=== PATIENT | female | born 1930 | race African-American/Black ===

== ENCOUNTER 2016-10-21 09:44 | Inpatient (IN) | payer MEDICARE, MEDICAID ==
[~2016-10-21] VITALS: Ht 162.6 cm; Wt 97.0 kg
[2016-10-21] VITALS (12 sets, daily range): BP systolic 136–176; BP diastolic 58–79; PULSE 72–88; RESP 12–30; TEMP 99.1–101.5; O2SAT 94–100
[~2016-10-21 09:44] MED LIST: 1-ME1LIQ PO; ALPR.25 PO; ARIC5TAB PO; ARIP1TAB46 PO; BUSP15TA PO; CLON.1 PO; CLOP75 PO; DOCU1CAP39 PO; DUONI INH; FURO1TAB93 PO; KCL10 PO; LEVA500T PO; LOSA25 PO; PRED50 PO; TRAM50 PO; TRAZ50TA4 PO; WARF6 PO
[2016-10-21] MEDS ORDERED: SODIUM CHLOR 0.9% 1000 ML INJ 1,000 ML IV SCH ×2 (09:55→12:39)
[2016-10-21] MEDS ORDERED: SODIUM CHLORIDE 0.9% FLUSH 5 ML FLUSH IV FLUSH PRN (10:00)
--- NOTE | 2016-10-21 10:02 | PD ---
HPI Chief Complaint: altered mental status Time Seen by Provider: 09:55 Travel History International Travel<30 days: No Contact w/Intl Traveler<30days: No Traveled to known affect area: No History of Present Illness HPI This is an 86-year-old female with a history of rheumatoid arthritis, hypertension, coronary artery disease, Parkinson's disease, dementia, who presents from home with altered mental status. The patient apparently was last seen normal last night before bed. When family members woke her up to give her a bath, she was severely lethargic and weak with altered mental status. The patient is unable to give history. She knows her name and where she is at. There is no other history at this time. PFSH Past Medical History Arthritis: Yes Asthma: No Autoimmune Disease: No Blood Disorders: No Anxiety: Yes Depression: Yes Heart Rhythm Problems: No Cancer: No Cardiovascular Problems: Yes High Cholesterol: No Chemotherapy: Yes Chest Pain: No Congestive Heart Failure: Yes COPD: No Cerebrovascular Accident: Yes Diabetes: Yes (BORDERLINE) Diminished Hearing: Yes (HEARING AIDS; [employer] [place]) Endocrine: No Gastrointestinal Disorders: No Genitourinary: Yes (history of uti) Hypertension: Yes Immune Disorder: No Musculoskeletal: Yes Neurologic: No Psychiatric: Yes Reproductive: No Respiratory: Yes Immunizations Current: Yes Myocardial Infarction: Yes Sleep Apnea: No Thyroid Disease: No PNEUMOCCOCAL Vaccine (Year): 3 Menopausal: Yes : 11 Para: 11 Past Surgical History Joint Replacement: Yes (bilateral knees) Pacemaker: No Other Surgery: Yes Social History Alcohol Use: No Tobacco Use: No Substance Use: No Allergies-Medications (Allergen,Severity, Reaction): Coded Allergies: No Known Allergies (Verified , 01/06/16) Reported Meds & Prescriptions Reported Meds & Active Scripts Active Reported Losartan (Losartan Potassium) 50 Mg Tab 50 Mg PO DAILY Amlodipine (Amlodipine Besylate) 10 Mg Tab 10 Mg PO DAILY Furosemide 40 Mg Tab 40 Mg PO DAILY Buspirone (Buspirone HCl) 15 Mg Tab 15 Mg PO TID Trazodone (Trazodone HCl) 50 Mg Tab 50 Mg PO HS Clonidine (Clonidine HCl) 0.1 Mg Tab 0.1 Mg PO BID Clopidogrel (Clopidogrel Bisulfate) 75 Mg Tab 75 Mg PO DAILY Ibuprofen 800 Mg Tab 800 Mg PO Q8H PRN Donepezil 5 Mg Tab 5 Mg PO HS Aripiprazole 10 Mg Tab 10 Mg PO DAILY Review of Systems ROS Limitations: Clinical Condition (unable to get review of systems.), Altered Mental Status Except as stated in HPI: all other systems reviewed are Neg Physical Exam Narrative GENERAL: Elderly weak ill appearing female in no acute respiratory distress. SKIN: Focused skin assessment warm/dry. HEAD: Atraumatic. Normocephalic. EYES: No scleral icterus. No injection or drainage. ENT: No nasal bleeding or discharge. Mucous membranes pink and moist. NECK: Trachea midline. Supple. CARDIOVASCULAR: Regular rate and rhythm, with a 2/6 systolic murmur heard at the right sternal border. Occasional PVC noted on monitor and on auscultation. RESPIRATORY: No accessory muscle use. Clear to auscultation however limited secondary to patient's respiratory effort.. Breath sounds equal bilaterally. GASTROINTESTINAL: Abdomen soft, non-tender, nondistended. MUSCULOSKELETAL: No obvious deformities. No clubbing. No cyanosis. Trace pretibial edema bilaterally. NEUROLOGICAL: Awake and confused. Questionable left facial droop. Motor equal but weak 4. Data Data Last Documented VS Vital Signs Date Time Temp Pulse Resp B/P Pulse Ox O2 Delivery O2 Flow Rate FiO2 10/21/16 10:04 79 12 94 Nasal Cannula 2 10/21/16 09:55 101.5 146/63 Orders Electrocardiogram (10/21/16 09:55) Complete Blood Count With Diff (10/21/16 09:55) Comprehensive Metabolic Panel (10/21/16 09:55) Creatine Kinase (Cpk) (10/21/16 09:55) Troponin I (10/21/16 09:55) Urinalysis - C+S If Indicated (10/21/16 09:55) Blood Culture (10/21/16 09:55) Chest, Single Ap (10/21/16 09:55) Ct Brain W/O Iv Contrast(Rout) (10/21/16 09:55) Blood Glucose (10/21/16 09:55) Ecg Monitoring (10/21/16 09:55) Iv Access Insert/Monitor (10/21/16 09:55) Oximetry (10/21/16 09:55) Sodium Chloride 0.9% Flush (Ns Flush) (10/21/16 10:00) Sodium Chlor 0.9% 1000 Ml Inj (Ns 1000 M (10/21/16 09:55) Prothrombin Time / Inr (Pt) (10/21/16 09:57) Act Partial Throm Time (Ptt) (10/21/16 09:57) Lactic Acid Sepsis Protocol (10/21/16 09:58) Urine Culture (10/21/16 10:30) Vancomycin Inj (Vancomycin Inj) (10/21/16 11:06) Piperacil-Tazo 4.5 Gm Premix (Zosyn 4.5 (10/21/16 11:06) Admit Order (Ed Use Only) (10/21/16 11:55) Labs Laboratory Tests Test 10/21/16 10/21/16 10/21/16 10:10 10:15 10:30 White Blood Count 10.1 TH/MM3 Red Blood Count 4.27 MIL/MM3 Hemoglobin 11.7 GM/DL Hematocrit 36.7 % Mean Corpuscular Volume 86.1 FL Mean Corpuscular Hemoglobin 27.5 PG Mean Corpuscular Hemoglobin 32.0 % Concent Red Cell Distribution Width 12.9 % Platelet Count 186 TH/MM3 Mean Platelet Volume 9.7 FL Neutrophils (%) (Auto) 82.1 % Lymphocytes (%) (Auto) 8.5 % Monocytes (%) (Auto) 9.0 % Eosinophils (%) (Auto) 0.1 % Basophils (%) (Auto) 0.3 % Neutrophils # (Auto) 8.2 TH/MM3 Lymphocytes # (Auto) 0.9 TH/MM3 Monocytes # (Auto) 0.9 TH/MM3 Eosinophils # (Auto) 0.0 TH/MM3 Basophils # (Auto) 0.0 TH/MM3 CBC Comment DIFF FINAL Differential Comment Prothrombin Time 11.1 SEC Prothromb Time International 1.0 RATIO Ratio Activated Partial 30.2 SEC Thromboplast Time Sodium Level 140 MEQ/L Potassium Level 5.0 MEQ/L Chloride Level 109 MEQ/L Carbon Dioxide Level 23.2 MEQ/L Anion Gap 8 MEQ/L Blood Urea Nitrogen 18 MG/DL Creatinine 1.28 MG/DL Estimat Glomerular Filtration 48 ML/MIN Rate Random Glucose 144 MG/DL Calcium Level 9.1 MG/DL Total Bilirubin 1.1 MG/DL Aspartate Amino Transf 29 U/L (AST/SGOT) Alanine Aminotransferase 15 U/L (ALT/SGPT) Alkaline Phosphatase 72 U/L Total Creatine Kinase 153 U/L Troponin I 0.85 NG/ML Total Protein 7.7 GM/DL Albumin 3.1 GM/DL Lactic Acid Level 2.1 mmol/L Urine Color YELLOW Urine Turbidity HAZY Urine pH 5.5 Urine Specific [place] 1.023 Urine Protein 100 mg/dL Urine Glucose (UA) NEG mg/dL Urine Ketones NEG mg/dL Urine Occult Blood SMALL Urine Nitrite NEG Urine Bilirubin NEG Urine Urobilinogen 2.0 MG/DL Urine Leukocyte Esterase LARGE Urine RBC 4 /hpf Urine WBC 11 /hpf Urine WBC Clumps RARE Urine Squamous Epithelial 2 /hpf Cells Urine Amorphous Sediment RARE Urine Bacteria MOD /hpf Urine Hyaline Casts 28 /lpf Urine Mucus FEW /lpf Microscopic Urinalysis Comment CATH-CULTURE IND MDM Medical Decision Making Medical Screen Exam Complete: Yes Emergency Medical Condition: Yes Differential Diagnosis Sepsis versus CVA versus metabolic arrangement Narrative Course 86-year-old female presents from home with altered mental status. The patient has a UTI. She does have a temperature of 101.6. She also has a infected tooth that she was scheduled to see the dentist for today. She was covered initially with Zosyn and vancomycin. There is a call out to the medical brine well operator as she is a full code. She has a temp of 101.5 with acute kidney injury and a lactate greater than 2.. She'll be continued on the antibiotics. She is also been started on normal saline at 100 cc per hour. Case was discussed with Dr. Sarah Jerez, who agrees to admit the patient to her service. Sepsis Criteria SIRS Criteria (2 or more): Temp > 100.9 or < 96.8 Sepsis Criteria (SIRS+source): Infect source susp/known Severe Sepsis (+one): Lactate >2, Acute Oliguria/Renal Failure Diagnosis Primary Impression: Sepsis Additional Impressions: Acute kidney injury Elevated troponin Rheumatoid factor positive Rheumatoid arthritis Coronary artery disease Admitting Information Admitting Physician Requests: Admit Moises Agudelo MD Oct 21, 2016 10:02
[2016-10-21] MEDS ORDERED: IBUP800T23 PO (10:12)
[2016-10-21] MEDS ORDERED: ARIP1TAB12 PO (10:12)
[2016-10-21] MEDS ORDERED: AMLO10TA2 PO (10:12)
[2016-10-21] MEDS ORDERED: CLON0.1T PO (10:12)
[2016-10-21] MEDS ORDERED: LOSA50TA PO (10:12)
[2016-10-21] MEDS ORDERED: CLOP75TA PO (10:12)
[2016-10-21] MEDS ORDERED: DONE5TAB7 PO (10:12)
[2016-10-21] MEDS ORDERED: FURO40TA PO (10:12)
[2016-10-21] MEDS ORDERED: TRAZ50TA12 PO (10:12)
[2016-10-21] MEDS ORDERED: BUSP15TA PO (10:12)
[2016-10-21 10:28] LABS: AUTOMATED NEUTROPHIL # 8.2 TH/MM3 (1.8-7.7); BASOPHIL % 0.3 % (0.0-2.0); EOSINOPHIL % 0.1 % (0.0-4.0); HEMATOCRIT 36.7 % (35.0-46.0); HEMO FLAGS DIFF FINAL; LYMPH % 8.5 % (9.0-44.0); LYMPHOCYTE # 0.9 TH/MM3 (1.0-4.8); MEAN CELL VOLUME 86.1 FL (80.0-100.0); MEAN CORPUSCULAR HEMOGLOBIN 27.5 PG (27.0-34.0); NEUT % 82.1 % (16.0-70.0); PLATELET COUNT 186 TH/MM3 (150-450); RED BLOOD COUNT 4.27 MIL/MM3 (4.00-5.30); RED CELL DISTRIBUTION WIDTH 12.9 % (11.6-17.2); WHITE BLOOD COUNT 10.1 TH/MM3 (4.0-11.0)
--- NOTE | 2016-10-21 10:39 | RADRPT ---
EXAM DATE/TIME: 10/21/2016 10:05 [facility] COMPARISON: CHEST SINGLE AP, January 06, 2016, 10:52. INDICATIONS : Weakness. MEDICAL HISTORY : Hypertension. SURGICAL HISTORY : None. ENCOUNTER: Initial ACUITY: 1 day PAIN SCORE: Non-responsive. LOCATION: Bilateral chest FINDINGS: The heart remains mildly prominent. The pulmonary vascular pattern is normal. The lungs are clear. Degenerative changes are noted involving the thoracic spine and bilateral shoulders. CONCLUSION: 1. No acute focal pulmonary infiltrate or pulmonary vascular congestion. 2. Mild cardiomegaly. 3. Degenerative changes involving the thoracic spine and bilateral shoulders. Chuck Vu MD on October 21, 2016 at 10:29 Board Certified Radiologist. This report was verified electronically.
[2016-10-21 10:44] LABS: APTT (PATIENT) 30.2 SEC (24.3-30.1); PROTHROMBIN TIME - PATIENT 11.1 SEC (9.8-11.6)
[2016-10-21 10:47] LABS: ALT (GPT) 15 U/L (10-53)
[2016-10-21 11:02] LABS: BACTERIA, URINE MOD /hpf; BLOOD, URINE SMALL (NEG); COMMENT (UR) CATH-CULTURE IND; CULTURE IF INDICATED CATH CULTURE IND; GLUCOSE,URINE NEG (NEG); HYALINE CAST, URINE 28 /lpf (RARE); KETONE, URINE NEG (NEG); MUCUS URINE FEW /lpf (OCC); NITRITE,URINE NEG (NEG); PH, URINE 5.5 (5.0-8.5); SQUAMOUS EPITHELIAL CELL URINE 2 /hpf (0-5); URINE COLOR YELLOW (YELLW/STRAW)
[2016-10-21] MEDS ORDERED: VANCOMYCIN INJ 1,000 MG in SODIUM CHLOR 0.9% 250 ML INJ 250 ML IV STA (11:06)
[2016-10-21] MEDS ORDERED: PIPERACIL-TAZO 4.5 GM PREMIX 100 ML IV STA (11:06)
[2016-10-21 11:09] LABS: ALKALINE PHOSPHATASE 72 U/L (45-117); ANION GAP 8 MEQ/L (5-15); AST (GOT) 29 U/L (15-37); BICARBONATE 23.2 MEQ/L (21.0-32.0); BLOOD UREA NITROGEN 18 MG/DL (7-18); CHLORIDE 109 MEQ/L (98-107); CREATINE KINASE 153 U/L (26-192); GLOMERULAR FILTRATION RATE 48 ML/MIN (>89); SODIUM (NA) 140 MEQ/L (136-145); TOTAL BILIRUBIN ADULT 1.1 MG/DL (0.2-1.0)
--- NOTE | 2016-10-21 11:31 | RADRPT ---
EXAM DATE/TIME: 10/21/2016 10:43 [facility] COMPARISON: CT BRAIN W/O CONTRAST, January 20, 2013, 12:20. INDICATIONS : Altered mental status, left side facial droop. RADIATION DOSE: 56.38 CTDIvol (mGy) MEDICAL HISTORY : Stroke. Cardiovascular disease Hypertension. SURGICAL HISTORY : None. ENCOUNTER: Initial ACUITY: 1 day PAIN SCALE: 0/10 LOCATION: cranial TECHNIQUE: Multiple contiguous axial images were obtained of the head. Using automated exposure control and adj ustment of the mA and/or kV according to patient size, radiation dose was kept as low as reasonably a chievable to obtain optimal diagnostic quality images. DICOM format image data is available electro nically for review and comparison. FINDINGS: Examination is limited by patient motion. CEREBRUM: Moderate diffuse cerebral atrophy and periventricular ischemic white matter location. The ventricles are normal for age. No evidence of midline shift, mass lesion, hemorrhage or acute infarction. No e xtra-axial fluid collections are seen. POSTERIOR FOSSA: The cerebellum and brainstem are intact. The 4th ventricle is midline. The cerebellopontine angle i s unremarkable. EXTRACRANIAL: The visualized portion of the orbits is intact. SKULL: The calvaria is intact. No evidence of skull fracture. CONCLUSION: 1. Senescent changes. 2. No acute intracranial normality. Tushar Vee MD on October 21, 2016 at 11:26 Board Certified Radiologist. This report was verified electronically.
[2016-10-21 12:23] LABS: LACTIC ACID GHOST NOT REPORTABLE
[2016-10-21] MEDS ORDERED: MAGNESIUM HYDROXIDE SUSP 30 ML CUP PO PRN (12:45)
[2016-10-21] MEDS ORDERED: LACTULOSE SYRUP 20 GM/30 ML CUP PO PRN (12:45)
[2016-10-21] MEDS ORDERED: BISACODYL 10 MG SUPP RECTAL PRN (12:45)
[2016-10-21] MEDS ORDERED: ONDANSETRON HCL 4 MG/2 ML VIAL IV PRN (12:45)
[2016-10-21] MEDS ORDERED: CHLORHEXIDINE GLUCONATE 2 % 1 PACK (2 CLOTHS) TOP PRN (12:45)
[2016-10-21] MEDS ORDERED: ACETAMINOPHEN 325 MG TAB PO PRN (12:45)
[2016-10-21] MEDS ORDERED: RESP: ALBUTEROL 2.5 MG/IPRATROPIUM 0.5 MG NEB (PRN) INH (12:45)
[2016-10-21] MEDS ORDERED: MISCELLANEOUS NURSING INFORMATION XX SCH ×2 (12:45→13:00)
[2016-10-21] MEDS ORDERED: SENNOSIDES 8.6 MG TAB PO PRN (12:45)
[2016-10-21] MEDS ORDERED: Vancomycin Consult Pharmacy 1 EA OTHER SCH (13:00)
[2016-10-21] MEDS ORDERED: GLUCAGON 1 MG/ML VIAL OTHER PRN (13:00)
[2016-10-21] MEDS ORDERED: DEXTROSE 50% IN WATER 50 ML VIAL(D50) IV PRN (13:00)
[2016-10-21] MEDS: HEPARIN SODIUM - SQ 10,000 UNITS/ML VIAL SQ SCH (13:11)
--- NOTE | 2016-10-21 13:40 | HHI.HP ---
HPI Service Critical Care Medicine Primary Care Physician Jose Cardoza MD Admission Diagnosis SEPSIS, acute kidney injury, elevated troponin Diagnosis: Travel History International Travel<30 Days: No Contact w/Intl Traveler <30 Da: No Traveled to Known Affected Are: No History of Present Illness This is an 86-year-old female with a history of rheumatoid arthritis, hypertension, coronary artery disease, Parkinson's disease, dementia, that presented to the ED with altered mental status. Per family report, the patient apparently was last seen normal last night before bed. When family members woke her up to give her a bath, she was severely lethargic and weak with altered mental status. The patient is a poor historian. Alert to name, and location. Per family report the patient is noted to have an infected tooth and was scheduled to have tooth extraction today .In the ED the patient's temperature was noted to be 101.5, laboratory and imaging studies were performed and the patient was noted to have probable urosepsis, empiric antibiotics were initiated. CT brain was within normal limits. Critical Care medicine was contacted for management of patient. History PFSH Past Medical History Arthritis: Yes Asthma: No Autoimmune Disease: No Blood Disorders: No Anxiety: Yes Depression: Yes Heart Rhythm Problems: No Cancer: No Cardiovascular Problems: Yes High Cholesterol: No Chemotherapy: Yes Chest Pain: No Congestive Heart Failure: Yes COPD: No Cerebrovascular Accident: Yes Diabetes: Yes (BORDERLINE) Diminished Hearing: Yes (HEARING AIDS; [place]) Endocrine: No Gastrointestinal Disorders: No Genitourinary: Yes (history of uti) Hypertension: Yes Immune Disorder: No Musculoskeletal: Yes Neurologic: No Psychiatric: Yes Reproductive: No Respiratory: Yes Immunizations Current: Yes Myocardial Infarction: Yes Sleep Apnea: No Thyroid Disease: No PNEUMOCCOCAL Vaccine (Year): 3 Menopausal: Yes : 11 Para: 11 Past Surgical History Joint Replacement: Yes (bilateral knees) Pacemaker: No Other Surgery: Yes Social History Alcohol Use: No Tobacco Use: No Substance Use: No Allergies-Medications Allergies-Medications (Allergen,Severity, Reaction): Coded Allergies: No Known Allergies (Verified , 01/06/16) Reported Meds & Prescriptions Reported Meds & Active Scripts Active Reported Losartan (Losartan Potassium) 50 Mg Tab 50 Mg PO DAILY Amlodipine (Amlodipine Besylate) 10 Mg Tab 10 Mg PO DAILY Furosemide 40 Mg Tab 40 Mg PO DAILY Buspirone (Buspirone HCl) 15 Mg Tab 15 Mg PO TID Trazodone (Trazodone HCl) 50 Mg Tab 50 Mg PO HS Clonidine (Clonidine HCl) 0.1 Mg Tab 0.1 Mg PO BID Clopidogrel (Clopidogrel Bisulfate) 75 Mg Tab 75 Mg PO DAILY Ibuprofen 800 Mg Tab 800 Mg PO Q8H PRN Donepezil 5 Mg Tab 5 Mg PO HS Aripiprazole 10 Mg Tab 10 Mg PO DAILY ROS Review of Systems ROS Limitations: Clinical Condition (unable to get review of systems.), Altered Mental Status Except as stated in HPI: all other systems reviewed are Neg Past Family Social History Allergies: Coded Allergies: *MDRO Multi-Drug Resistant Organism (Verified Adverse Reaction, Unknown, MRSA, 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 SKIN: Warm and dry. HEAD: Atraumatic. Normocephalic. EYES: Pupils equal and round. No scleral icterus. No injection or drainage. ENT: No nasal bleeding or discharge. Mucous membranes pink and moist. Noted carious teeth NECK: Trachea midline. No JVD. CARDIOVASCULAR: Normal rate, regular rhythm. Systolic ejection murmur left sternal border RESPIRATORY: No accessory muscle use. Clear to auscultation. Breath sounds equal bilaterally. GASTROINTESTINAL: Abdomen soft, non-tender, nondistended. No guarding. MUSCULOSKELETAL: Extremities without clubbing, cyanosis, or edema. No obvious deformities. Well-healed surgical scars bilateral knees, 1+ pedal edema NEUROLOGICAL: Awake and alert. RASS 0. No gross focal/sensory deficits. Follows commands in all 4 extremities. Laboratory Laboratory Tests Test 10/21/16 10/21/16 10/21/16 10:10 10:15 10:30 White Blood Count 10.1 Red Blood Count 4.27 Hemoglobin 11.7 Hematocrit 36.7 Mean Corpuscular Volume 86.1 Mean Corpuscular Hemoglobin 27.5 Mean Corpuscular Hemoglobin 32.0 Concent Red Cell Distribution Width 12.9 Platelet Count 186 Mean Platelet Volume 9.7 Neutrophils (%) (Auto) 82.1 Lymphocytes (%) (Auto) 8.5 Monocytes (%) (Auto) 9.0 Eosinophils (%) (Auto) 0.1 Basophils (%) (Auto) 0.3 Neutrophils # (Auto) 8.2 Lymphocytes # (Auto) 0.9 Monocytes # (Auto) 0.9 Eosinophils # (Auto) 0.0 Basophils # (Auto) 0.0 CBC Comment DIFF FINAL Differential Comment Prothrombin Time 11.1 Prothromb Time International 1.0 Ratio Activated Partial 30.2 Thromboplast Time Sodium Level 140 Potassium Level 5.0 Chloride Level 109 Carbon Dioxide Level 23.2 Anion Gap 8 Blood Urea Nitrogen 18 Creatinine 1.28 Estimat Glomerular Filtration 48 Rate Random Glucose 144 Calcium Level 9.1 Total Bilirubin 1.1 Aspartate Amino Transf 29 (AST/SGOT) Alanine Aminotransferase 15 (ALT/SGPT) Alkaline Phosphatase 72 Total Creatine Kinase 153 Troponin I 0.85 Total Protein 7.7 Albumin 3.1 Lactic Acid Level 2.1 Urine Color YELLOW Urine Turbidity HAZY Urine pH 5.5 Urine Specific [place] 1.023 Urine Protein 100 Urine Glucose (UA) NEG Urine Ketones NEG Urine Occult Blood SMALL Urine Nitrite NEG Urine Bilirubin NEG Urine Urobilinogen 2.0 Urine Leukocyte Esterase LARGE Urine RBC 4 Urine WBC 11 Urine WBC Clumps RARE Urine Squamous Epithelial 2 Cells Urine Amorphous Sediment RARE Urine Bacteria MOD Urine Hyaline Casts 28 Urine Mucus FEW Microscopic Urinalysis Comment CATH-CULTURE IND Date/Time Procedure Status Source Growth 10/21/16 10:30 Urine Culture Received Urine Catheterized Urine Pending 10/21/16 10:15 Aerobic Blood Culture Received Blood Peripheral Pending 10/21/16 10:15 Anaerobic Blood Culture Received Blood Peripheral Pending Result Diagram: 10/21/16 1010 10/21/16 1010 Imaging Last Impressions Head CT 10/21/16954 Signed Impressions: Service Date/Time: Friday, October 21, 2016 10:43 - CONCLUSION: 1. Senescent changes. 2. No acute intracranial normality. Tushar Vee MD Chest X-Ray 10/21/16954 Signed Impressions: Service Date/Time: Friday, October 21, 2016 10:05 - CONCLUSION: 1. No acute focal pulmonary infiltrate or pulmonary vascular congestion. 2. Mild cardiomegaly. 3. Degenerative changes involving the thoracic spine and bilateral shoulders. Chuck Vu MD Septic Shock Reassessment Heart: Regular rate and rhythm Lungs: Clear Skin: Warm, Dry Peripheral Pulses: Bounding Right Radial Bounding Left Radial Assessment and Plan Assessment and Plan Assessment 1. Urosepsis 2. Possible dental abscess 3. Metabolic encephalopathy secondary to sepsis 4. Parkinson's 5. Dementia 6. Hypertension 7. Coronary artery disease 8. SHAMA secondary to sepsis Plan by systems: Neurologic: -Neurochecks per ICU protocol -Continue Apiprazole, Donepizil, -Hold trazodone and Buspar at this time -Maintain sleep hygiene-stimulation during the day, minimal stimulation, encourage sleep at night Respiratory: -Maintain O2 sat greater than 92%, currently nasal cannula O2 at 2 L continue to wean -Bronchodilators -Maintain head of bed 30 Cardiovascular: -BP ranging 180/91 , 201/91-continue antihypertensive home medications to include losartan, amlodipine, and clonidine -Continue Plavix -Patient's home dose of Lasix 40 mg daily will be held today, creatinine 1.28, will monitor and reinstitute -Echocardiogram 12/28/14-ejection fraction 5560 percent, no RWMA, moderate aortic stenosis, trace aortic regurgitation, mild tricuspid regurgitation, grade 1 diastolic dysfunction -Obtain recent echo Renal: -Hold patient's home med NSAID, avoid nephrotoxins -Insert Verdugo catheter -- Strict I/Os FEN/GI: -Normal saline 84 cc/hour -Nothing by mouth -Obtain formal swallow study, then advance diet -Bowel regimen Heme/ID: -Monitor CBC, WBC count 10.1 -Continue empiric antibiotics-Zosyn, and vancomycin -Obtain blood urine and urine [id number] results -Legionella, pneumococcal urine [id number] results -Influenza A and B [id number] results Endocrine: Glucose monitoring per ICU protocol -Low dose insulin regimen -- SSI Prophylaxis: GI Prophylaxis Protonix DVT Prophylaxis -- SCDs Heparin twice a day Lines: Peripheral IVs. Central line if indicated Dispo: Level 3 Code Status Full Discussed Condition With ED RN at bedside, and Sarah Santoro MD Oct 21, 2016 13:40
[2016-10-21] MEDS: RESP: ALBUTEROL 2.5 MG/IPRATROPIUM 0.5 MG NEB (SCH) INH ×2 (15:42→20:17)
--- NOTE | 2016-10-21 15:59 | ECHRPT ---
Indication: Hypertensive heart disease without heart failure CONCLUSIONS Normal left ventricular size. Mild concentric left ventricular hypertrophy. The left ventricular systolic function is normal with an estimated ejection fraction in the range of 55-60%. No regional wall motion abnormalities are present. The left atrial size is mildly dilated. Mitral annular calcification is present. Moderate mitral valve regurgitation. Severe aortic valve stenosis. Aortic valve mean gradient is 44 mmHg. There is moderate tricuspid regurgitation. There is estimated severe pulmonary hypertension present ( 73 mmHg). A trivial pericardial effusion is noted. No hemodynamically significant echocardiographic features were observed (no pre-tamponade physiology). BP: / HR: Rhythm: Other MEASUREMENTS (Male / Female) Normal Values Technical Quality:Good 2D ECHO LV Diastolic Diameter PLAX 4.5 cm 4.2 - 5.9 / 3.9 - 5.3 cm LV Systolic Diameter PLAX 3.2 cm IVS Diastolic Thickness 1.1 cm 0.6 - 1.0 / 0.6 - 0.9 cm LVPW Diastolic Thickness 0.8 cm 0.6 - 1.0 / 0.6 - 0.9 cm LV Relative Wall Thickness 0.4 RV Internal Dim ED PLAX 2.3 cm LA Systolic Diameter LX 3.8 cm 3.0 - 4.0 / 2.7 - 3.8 cm DOPPLER AV Peak Velocity 468.0 cm/s AV Peak Gradient 87.6 mmHg AV Mean Gradient 44.0 mmHg AV Velocity Time Integral 104.0 cm LVOT Peak Velocity 134.5 cm/s LVOT Peak Gradient 7.2 mmHg LVOT Velocity Time Integral 30.3 cm MV Peak Velocity 207.0 cm/s MV Peak Gradient 17.1 mmHg MV Mean Velocity 102.0 cm/s MV Mean Gradient 5.0 mmHg MV Area PHT 3.4 cm MR Peak Velocity 725.0 cm/s MR Peak Gradient 210.3 mmHg Mitral E Point Velocity 115.0 cm/s Mitral A Point Velocity 149.0 cm/s Mitral E to A Ratio 0.8 TR Peak Velocity 412.0 cm/s TR Peak Gradient 67.9 mmHg FINDINGS LEFT VENTRICLE Normal left ventricular size. Mild concentric left ventricular hypertrophy. The left ventricular systolic function is normal with an estimated ejection fraction in the range of 55-60%. No regional wall motion abnormalities are present. RIGHT VENTRICLE Normal right ventricular size and systolic function. LEFT ATRIUM The left atrial size is mildly dilated. RIGHT ATRIUM The right atrial size is normal. ATRIAL SEPTUM Normal atrial septal thickness without atrial level shunting by limited color doppler interrogation. AORTA The aortic root and proximal ascending aorta are normal in size on limited imaging. MITRAL VALVE Mitral annular calcification is present. Moderate mitral valve regurgitation. AORTIC VALVE Moderate aortic valve stenosis. Aortic valve mean gradient is 44 mmHg. TRICUSPID VALVE There is moderate tricuspid regurgitation. There is estimated severe pulmonary hypertension present ( 73 mmHg). PULMONARY VALVE The pulmonary valve is not well visualized. VESSELS The inferior vena cava is normal in size. PERICARDIUM A trivial pericardial effusion is noted. No hemodynamically significant echocardiographic features were observed (no pre-tamponade physiology). Eric Ramsey MD (Electronically Signed) Final Date:21 October 2016 15:57
[2016-10-21] MEDS: INSULIN ASPART SUPPLEMENTAL SCALE SQ SCH ×2 (16:00→20:52)
[2016-10-21] MEDS ORDERED: hydrALAZINE HCL 20 MG/ML VIAL ONE (16:04)
[2016-10-21] MEDS ORDERED: hydrALAZINE HCL 20 MG/ML VIAL IV PUSH PRN (17:00)
[2016-10-21] MEDS: PIPERACIL-TAZO 4.5 GM PREMIX 100 ML IV SCH ×2 (17:19→23:11)
[2016-10-21] MEDS: DEXT 5%-NACL 0.9% 1000 ML INJ 1,000 ML IV SCH (17:22)
[2016-10-21 19:15] LABS: LACTIC ACID GHOST NOT REPORTABLE
[2016-10-21] MEDS: DONEPEZIL HCL 5 MG TAB PO SCH (20:52)
[2016-10-21] MEDS: DOCUSATE SODIUM 50 MG/SENNA 8.6 MG TAB PO SCH (20:52)
[2016-10-21] MEDS: cloNIDine HCL 0.1 MG TAB PO SCH (20:52)
[2016-10-21] MEDS ORDERED: traZODone HCL 50 MG TAB PO SCH (21:00)
[2016-10-22] VITALS (16 sets, daily range): BP systolic 129–177; BP diastolic 55–90; PULSE 58–78; RESP 14–28; TEMP 98–99.9; O2SAT 94–100
[2016-10-22] MEDS: HEPARIN SODIUM - SQ 10,000 UNITS/ML VIAL SQ SCH ×2 (00:19→13:25)
[2016-10-22] MEDS: CHLORHEXIDINE GLUCONATE 2 % 1 PACK (2 CLOTHS) TOP SCH (03:15)
[2016-10-22] MEDS: RESP: ALBUTEROL 2.5 MG/IPRATROPIUM 0.5 MG NEB (SCH) INH ×4 (03:36→19:58)
[2016-10-22] MEDS: PIPERACIL-TAZO 4.5 GM PREMIX 100 ML IV SCH ×4 (04:53→22:47)
[2016-10-22] MEDS: VANCOMYCIN INJ 1,250 MG in SODIUM CHLOR 0.9% 250 ML INJ 250 ML IV SCH (05:32)
[2016-10-22] MEDS: DEXT 5%-NACL 0.9% 1000 ML INJ 1,000 ML IV SCH (05:32)
[2016-10-22] MEDS ORDERED: VANCOMYCIN INJ 1,500 MG in SODIUM CHLORID 0.9% 500 ML INJ 500 ML IV SCH (06:00)
[2016-10-22] MEDS: INSULIN ASPART SUPPLEMENTAL SCALE SQ SCH ×4 (06:05→20:17)
[2016-10-22] MEDS: CLOPIDOGREL 75 MG TAB PO SCH (08:06)
[2016-10-22] MEDS: DOCUSATE SODIUM 50 MG/SENNA 8.6 MG TAB PO SCH ×2 (08:06→20:17)
[2016-10-22] MEDS: ARIPiprazole 10 MG TAB PO SCH (08:06)
[2016-10-22] MEDS: cloNIDine HCL 0.1 MG TAB PO SCH ×2 (08:06→20:17)
[2016-10-22] MEDS: PANTOPRAZOLE SODIUM 40 MG VIAL IV SCH (08:06)
[2016-10-22] MEDS: LOSARTAN 50 MG TAB PO SCH (08:06)
--- NOTE | 2016-10-22 08:12 | EKG ---
Date Performed: 10/21/2016 Time Performed: 10:03:00 PTAGE: 86 years EKG: Sinus rhythm NONSPECIFIC T-WAVE ABNORMALITY BORDERLINE ECG INTERPRETATION BASED ON A DEFAULT AGE OF 40 YEARS PREVIOUS TRACING : 01/06/2016 11.01 DOCTOR: Eric Ramsey Interpretating Date/Time 10/22/2016 08:05:52
[2016-10-22] MEDS: FUROSEMIDE 40 MG TAB PO SCH (10:07)
[2016-10-22] MEDS: SODIUM CHLOR 0.9% 1000 ML INJ 1,000 ML IV SCH (10:07)
--- NOTE | 2016-10-22 10:21 | HHI.CCPN ---
Subjective Remarks/Hospital Course This is an 86-year-old female with a history of rheumatoid arthritis, hypertension, coronary artery disease, Parkinson's disease, dementia, that presented to the ED with altered mental status. Per family report, the patient apparently was last seen normal last night before bed. When family members woke her up to give her a bath, she was severely lethargic and weak with altered mental status. The patient is a poor historian. Alert to name, and location. Per family report the patient is noted to have an infected tooth and was scheduled to have tooth extraction today .In the ED the patient's temperature was noted to be 101.5, laboratory and imaging studies were performed and the patient was noted to have probable urosepsis, empiric antibiotics were initiated. CT brain was within normal limits. Critical Care medicine was contacted for management of patient. Subjective: 10/22: Tmax 99.9. No acute issues overnight. Swallow study performed, mechanical soft diet initiated this a.m.. Patient's home medications, diuretics resumed. Morning labs pending. Patient awake and responsive, per daughter, normal activity. Objective Vital Signs Date Time Temp Pulse Resp B/P Pulse Ox O2 Delivery O2 Flow Rate FiO2 10/22/16 09: 99 Nasal Cannula 2.00 10/22/16 09:00 60 28 131/56 10/22/16 08:00 98.0 Intake and Output 10/21/16 10/21/16 10/22/16 08:00 16:00 00:00 Intake Total 762 ml Output Total 450 ml Balance 312 ml Result Diagram: 10/21/16 1010 10/21/16 1010 Other Results Microbiology Date/Time Procedure Status Source Growth 10/21/16 10:30 Legionella Antigen - Final Complete Urine Catheterized Urine PRESUMPTIVE NEGATIVE FOR LEGIONELLA P... 10/21/16 10:30 Streptococcus pneumoniae Antigen (M - Final Complete Urine Catheterized Urine PRESUMPTIVE NEGATIVE FOR STREPTOCOCCU... 10/21/16 13:45 Influenza Types A,B Antigen (SABINO) - Final Complete Nasal Washing NEGATIVE FOR FLU A AND B ANTIGEN.... Imaging Last Impressions Head CT 10/21/16 0963 Signed Impressions: Service Date/Time: Friday, October 21, 2016 10:43 - CONCLUSION: 1. Senescent changes. 2. No acute intracranial normality. Tushar Vee MD Chest X-Ray 10/21/16 0955 Signed Impressions: Service Date/Time: Friday, October 21, 2016 10:05 - CONCLUSION: 1. No acute focal pulmonary infiltrate or pulmonary vascular congestion. 2. Mild cardiomegaly. 3. Degenerative changes involving the thoracic spine and bilateral shoulders. Chuck Vu MD Objective Remarks GENERAL: Elderly obese female, alert and responsive SKIN: Warm and dry. HEAD: Atraumatic. Normocephalic. EYES: Pupils equal and round. No scleral icterus. No injection or drainage. ENT: No nasal bleeding or discharge. Mucous membranes pink and moist. NECK: Trachea midline. No JVD. CARDIOVASCULAR: Normal rate, regular rhythm. Systolic ejection murmur left sternal border RESPIRATORY: No accessory muscle use. Clear to auscultation. Breath sounds equal bilaterally. GASTROINTESTINAL: Abdomen soft, non-tender, nondistended. No guarding. MUSCULOSKELETAL: Extremities without clubbing, cyanosis, or edema. No obvious deformities. Well-healed surgical scars bilateral knees, 1+ pedal edema NEUROLOGICAL: Awake and alert. RASS 0. No gross focal/sensory deficits. Follows commands in all 4 extremities. Urinary Catheter: Yes Verdugo insert reason: Measure Accurate Output Date of Insertion: Oct 21, 2016 Vascular Central Line Catheter: No A/P Assessment and Plan Assessment 1. Urosepsis 2. Possible dental abscess 3. Metabolic encephalopathy secondary to sepsis 4. Parkinson's 5. Dementia 6. Hypertension 7. Coronary artery disease 8. SHAMA secondary to sepsis Plan by systems: Neurologic: -Neurochecks per ICU protocol -Continue Apiprazole, Donepizil, -Hold trazodone and Buspar at this time -Maintain sleep hygiene-stimulation during the day, minimal stimulation, encourage sleep at night Respiratory: -Maintain O2 sat greater than 92%, currently nasal cannula O2 at 2 L continue to wean -Bronchodilators -Maintain head of bed 30 -10/21 Severe Pulmonary hypertension per echo Cardiovascular: -BP ranging 180/91 , 201/91-continue antihypertensive home medications to include losartan, amlodipine, and clonidine -Continue Plavix -Patient's home dose of Lasix 40 mg daily will be held today, creatinine 1.28, will monitor and reinstitute -Echocardiogram 12/28/14-ejection fraction 5560 percent, no RWMA, moderate aortic stenosis, trace aortic regurgitation, mild tricuspid regurgitation, grade 1 diastolic dysfunction -10/21 Echo-EF 5560 %. No RWMA. Severe pulmonary hypertension 73 mmHG, moderate TR, moderate MR, moderate aortic stenosis, AV gradient of 44 mmHg Renal: -Hold patient's home med NSAID, avoid nephrotoxins -Resume patient's home medications furosemide 40 mg q daily -Insert Verdugo catheter -- Strict I/Os FEN/GI: -Continue Normal saline 42 cc/hour -Mechanical soft diet -Bowel regimen Heme/ID: -Monitor CBC, -Continue empiric antibiotics-Zosyn, and vancomycin (day 2) -Obtain blood urine and urine [id number] results -10/21 Legionella, pneumococcal urine antigen-negative -10/21 Influenza A and B antigens-negative Endocrine: Glucose monitoring per ICU protocol -Low dose insulin regimen -- SSI Prophylaxis: GI Prophylaxis Protonix DVT Prophylaxis -- SCDs Heparin twice a day Lines: Peripheral IVs. Dispo: Discussed with KELP GATHERER at bedside. Plan transfer to [facility] in a.m. Level 2 Physician Sarah Tam MD Oct 22, 2016 10:21
[2016-10-22 11:45] LABS: MAGNESIUM 2.3 MG/DL (1.5-2.5); POTASSIUM 3.7 MEQ/L (3.5-5.1)
[2016-10-22] MEDS: DONEPEZIL HCL 5 MG TAB PO SCH (20:17)
[2016-10-23] VITALS (12 sets, daily range): BP systolic 106–146; BP diastolic 50–63; PULSE 56–85; RESP 12–24; TEMP 97.9–99.1; O2SAT 95–100
[2016-10-23] MEDS: HEPARIN SODIUM - SQ 10,000 UNITS/ML VIAL SQ SCH ×2 (00:35→11:58)
[2016-10-23] MEDS: RESP: ALBUTEROL 2.5 MG/IPRATROPIUM 0.5 MG NEB (SCH) INH ×4 (03:13→21:33)
[2016-10-23] MEDS: CHLORHEXIDINE GLUCONATE 2 % 1 PACK (2 CLOTHS) TOP SCH (04:00)
[2016-10-23] MEDS: PIPERACIL-TAZO 4.5 GM PREMIX 100 ML IV SCH ×4 (04:30→22:09)
[2016-10-23] MEDS: INSULIN ASPART SUPPLEMENTAL SCALE SQ SCH ×4 (05:57→21:00)
[2016-10-23] MEDS: VANCOMYCIN INJ 1,250 MG in SODIUM CHLOR 0.9% 250 ML INJ 250 ML IV SCH (05:57)
[2016-10-23 06:11] LABS: HEMATOCRIT 32.1 % (35.0-46.0); MEAN CELL VOLUME 85.2 FL (80.0-100.0); MEAN CORPUSCULAR HEMOGLOBIN 27.7 PG (27.0-34.0); MEAN CORPUSCULAR HGB CONC 32.6 % (32.0-36.0); PLATELET COUNT 173 TH/MM3 (150-450); RED BLOOD COUNT 3.77 MIL/MM3 (4.00-5.30); RED CELL DISTRIBUTION WIDTH 12.9 % (11.6-17.2); REVIEW FLAG FINAL; WHITE BLOOD COUNT 7.8 TH/MM3 (4.0-11.0)
[2016-10-23 06:34] LABS: BICARBONATE 25.4 MEQ/L (21.0-32.0); MAGNESIUM 2.1 MG/DL (1.5-2.5)
[2016-10-23] MEDS: CLOPIDOGREL 75 MG TAB PO SCH (08:15)
[2016-10-23] MEDS: PANTOPRAZOLE SODIUM 40 MG VIAL IV SCH (08:15)
[2016-10-23] MEDS: cloNIDine HCL 0.1 MG TAB PO SCH ×2 (08:15→21:47)
[2016-10-23] MEDS: FUROSEMIDE 40 MG TAB PO SCH (08:15)
[2016-10-23] MEDS: DOCUSATE SODIUM 50 MG/SENNA 8.6 MG TAB PO SCH ×2 (08:15→21:47)
[2016-10-23] MEDS: LOSARTAN 50 MG TAB PO SCH (08:15)
[2016-10-23] MEDS: ARIPiprazole 10 MG TAB PO SCH (08:15)
[2016-10-23] MEDS: SODIUM CHLOR 0.9% 1000 ML INJ 1,000 ML IV SCH (08:16)
--- NOTE | 2016-10-23 10:31 | PD.TRANSFR ---
Transfer Summary Admission Date Oct 21, 2016 at 11:57 Admitting Diagnosis SEPSIS, acute kidney injury, elevated troponin Diagnoses: Transfer Summary/Subjective This is an 86-year-old female with a history of rheumatoid arthritis, hypertension, coronary artery disease, Parkinson's disease, dementia, that presented to the ED with altered mental status. Per family report, the patient apparently was last seen normal last night before bed. When family members woke her up to give her a bath, she was severely lethargic and weak with altered mental status. The patient is a poor historian. Alert to name, and location. Per family report the patient is noted to have an infected tooth and was scheduled to have tooth extraction today .In the ED the patient's temperature was noted to be 101.5, laboratory and imaging studies were performed and the patient was noted to have probable urosepsis, empiric antibiotics were initiated. CT brain was within normal limits. Critical Care medicine was contacted for management of patient. Subjective: 10/22: Tmax 99.9. No acute issues overnight. Swallow study performed, mechanical soft diet initiated this a.m.. Patient's home medications, diuretics resumed. Morning labs pending. Patient awake and responsive, per daughter, normal behavior. 10/23: No acute issues overnight. Gram-negative rods noted with urinary culture. Patient continues on Zosyn. Tolerating a diet, physical therapy has been instituted. Objective Vital Signs Date Time Temp Pulse Resp B/P Pulse Ox O2 Delivery O2 Flow Rate FiO2 10/23/16 09:23 99 10/23/16 06:00 85 10/23/16 04:00 98.0 15 137/61 10/23/16 04:00 Nasal Cannula 2.00 Intake and Output 10/22/16 10/22/16 10/23/16 08:00 16:00 00:00 Intake Total 512 ml 1261 ml 658 ml Output Total 175 ml 450 ml 525 ml Balance 337 ml 811 ml 133 ml Result Diagram: 10/23/16 0553 10/23/16 0553 Other Results Microbiology Date/Time Procedure Status Source Growth 10/21/16 10:30 Legionella Antigen - Final Complete Urine Catheterized Urine PRESUMPTIVE NEGATIVE FOR LEGIONELLA P... 10/21/16 10:30 Streptococcus pneumoniae Antigen (M - Final Complete Urine Catheterized Urine PRESUMPTIVE NEGATIVE FOR STREPTOCOCCU... 10/21/16 13:45 Influenza Types A,B Antigen (SABINO) - Final Complete Nasal Washing NEGATIVE FOR FLU A AND B ANTIGEN.... Imaging Last Impressions Head CT 10/21/16954 Signed Impressions: Service Date/Time: Friday, October 21, 2016 10:43 - CONCLUSION: 1. Senescent changes. 2. No acute intracranial normality. Tushar Vee MD Chest X-Ray 10/21/16954 Signed Impressions: Service Date/Time: Friday, October 21, 2016 10:05 - CONCLUSION: 1. No acute focal pulmonary infiltrate or pulmonary vascular congestion. 2. Mild cardiomegaly. 3. Degenerative changes involving the thoracic spine and bilateral shoulders. Chuck Vu MD Objective Remarks GENERAL: Elderly obese female, alert and responsive SKIN: Warm and dry. HEAD: Atraumatic. Normocephalic. EYES: Pupils equal and round. No scleral icterus. No injection or drainage. ENT: No nasal bleeding or discharge. Mucous membranes pink and moist. NECK: Trachea midline. No JVD. CARDIOVASCULAR: Normal rate, regular rhythm. Systolic ejection murmur left sternal border RESPIRATORY: No accessory muscle use. Clear to auscultation. Breath sounds equal bilaterally. GASTROINTESTINAL: Abdomen soft, non-tender, nondistended. No guarding. MUSCULOSKELETAL: Extremities without clubbing, cyanosis, or edema. No obvious deformities. Well-healed surgical scars bilateral knees, 1+ pedal edema NEUROLOGICAL: Awake and alert. RASS 0. No gross focal/sensory deficits. Follows commands in all 4 extremities. Urinary Catheter: Yes Verdugo insert reason: Measure Accurate Output Date of Insertion: Oct 21, 2016 A/P Assessment and Plan Assessment 1. Urosepsis 2. Possible dental abscess 3. Metabolic encephalopathy secondary to sepsis 4. Parkinson's 5. Dementia 6. Hypertension 7. Coronary artery disease 8. SHAMA secondary to sepsis Plan by systems: Neurologic: -Neurochecks per ICU protocol -Continue Apiprazole, Donepizil, -Continue trazodone and Buspar at this time -Maintain sleep hygiene-stimulation during the day, minimal stimulation, encourage sleep at night Respiratory: -Maintain O2 sat greater than 92%, currently nasal cannula O2 at 2 L continue to wean -Bronchodilators -Maintain head of bed 30 -10/21 Severe Pulmonary hypertension per echo Cardiovascular: -BP ranging 180/91 , 201/91-continue antihypertensive home medications to include losartan, amlodipine, and clonidine -Continue Plavix -Patient's home dose of Lasix 40 mg daily will be held today, creatinine 1.28, will monitor and reinstitute -Echocardiogram 12/28/14-ejection fraction 5560 percent, no RWMA, moderate aortic stenosis, trace aortic regurgitation, mild tricuspid regurgitation, grade 1 diastolic dysfunction -10/21 Echo-EF 5560 %. No RWMA. Severe pulmonary hypertension 73 mmHG, moderate TR, moderate MR, moderate aortic stenosis, AV gradient of 44 mmHg Renal: -Hold patient's home med NSAID, avoid nephrotoxins -Resume patient's home medications furosemide 40 mg q daily -Insert Verdugo catheter -- Strict I/Os FEN/GI: -Discontinue Normal saline 42 cc/hour -Mechanical soft diet -Bowel regimen Heme/ID: -Monitor CBC, -Continue empiric antibiotics-Zosyn(day 3), and vancomycin (day 2) discontinued - blood cultures- pending - urine [id number] rods -10/21 Legionella, pneumococcal urine antigen-negative -10/21 Influenza A and B antigens-negative Endocrine: Glucose monitoring per ICU protocol -Low dose insulin regimen -- SSI Prophylaxis: GI Prophylaxis Protonix DVT Prophylaxis -- SCDs Heparin twice a day Lines: Peripheral IVs. Dispo: Discussed with PATIENT ACCOUNTING REPRESENTATIVE at bedside. Plan transfer to [facility] in a.m. Level 2 Physician Sarah Tam MD Oct 23, 2016 10:31
[2016-10-23] MEDS: DONEPEZIL HCL 5 MG TAB PO SCH (21:47)
[2016-10-24] VITALS (9 sets, daily range): BP systolic 141–172; BP diastolic 64–79; PULSE 55–70; RESP 20–24; TEMP 97.6–98.4; O2SAT 92–100
[2016-10-24] MEDS: HEPARIN SODIUM - SQ 10,000 UNITS/ML VIAL SQ SCH ×2 (00:41→13:15)
[2016-10-24] MEDS: CHLORHEXIDINE GLUCONATE 2 % 1 PACK (2 CLOTHS) TOP SCH (04:00)
[2016-10-24] MEDS: RESP: ALBUTEROL 2.5 MG/IPRATROPIUM 0.5 MG NEB (SCH) INH ×4 (04:00→21:59)
[2016-10-24] MEDS: PIPERACIL-TAZO 4.5 GM PREMIX 100 ML IV SCH (04:55)
[2016-10-24] MEDS ORDERED: PHARMACY ORDERED LAB ONE (05:45)
[2016-10-24] MEDS: INSULIN ASPART SUPPLEMENTAL SCALE SQ SCH ×4 (06:41→21:00)
[2016-10-24] MEDS: FUROSEMIDE 40 MG TAB PO SCH (10:06)
[2016-10-24] MEDS: PANTOPRAZOLE SODIUM 40 MG VIAL IV SCH (10:06)
[2016-10-24] MEDS: DOCUSATE SODIUM 50 MG/SENNA 8.6 MG TAB PO SCH ×2 (10:06→21:00)
[2016-10-24] MEDS: CLOPIDOGREL 75 MG TAB PO SCH (10:07)
[2016-10-24] MEDS: LOSARTAN 50 MG TAB PO SCH (10:07)
[2016-10-24] MEDS: cloNIDine HCL 0.1 MG TAB PO SCH ×2 (10:07→21:51)
[2016-10-24] MEDS: ARIPiprazole 10 MG TAB PO SCH (10:07)
--- NOTE | 2016-10-24 10:36 | HHI.PR ---
Subjective Remarks Follow up urosepsis, encephalopathy. Patient denies complaints at this time. Denies pain. Denies dyspnea. Objective Vitals Vital Signs Date Time Temp Pulse Resp B/P Pulse Ox O2 Delivery O2 Flow Rate FiO2 10/24/16 09:21 92 Nasal Cannula 3.00 10/24/16 08:00 98.2 62 24 147/64 97 10/24/16 08:00 Nasal Cannula 3.00 10/24/16 04:00 97.6 65 20 141/65 99 10/24/16 00:00 98.3 55 20 142/64 100 10/23/16 21:34 99 Nasal Cannula 2.00 10/23/16 16:41 97 2.00 10/23/16 16:00 97.9 68 24 146/63 95 10/23/16 16:00 97 Room Air 10/23/16 14:00 99.1 65 18 137/63 95 10/23/16 12:00 98.3 63 24 125/58 100 10/23/16 12:00 64 10/23/16 12:00 100 Room Air I/O 10/23/16 10/23/16 10/23/16 10/24/16 10/24/16 10/24/16 07:00 15:00 23:00 07:00 15:00 23:00 Intake Total 402 ml 240 ml 360 ml 360 ml Output Total 150 ml 900 ml 150 ml 250 ml Balance 252 ml -660 ml 210 ml 110 ml Intake Oral 240 ml 360 ml 360 ml IV Total 402 ml Output Urine Total 150 ml 900 ml 150 ml 250 ml # Bowel Movements 0 Result Diagram: 10/23/16 0553 10/23/1653 Imaging Last Impressions Head CT 10/21/16954 Signed Impressions: Service Date/Time: Friday, October 21, 2016 10:43 - CONCLUSION: 1. Senescent changes. 2. No acute intracranial normality. Tushar Vee MD Chest X-Ray 10/21/16954 Signed Impressions: Service Date/Time: Friday, October 21, 2016 10:05 - CONCLUSION: 1. No acute focal pulmonary infiltrate or pulmonary vascular congestion. 2. Mild cardiomegaly. 3. Degenerative changes involving the thoracic spine and bilateral shoulders. Chuck Vu MD Objective Remarks General: Obese, elderly female in no acute distress. Heart: Regular rate and rhythm. No murmur. Lungs: Clear to auscultation bilaterally. No wheezes, rales, or rhonchi. Breathing is nonlabored. Abdomen: Soft, nontender, nondistended. Extremities: Trace to 1+ bilateral lower extremity edema. SCDs. Psych: Alert, somewhat confused. Procedures None Urinary Catheter: Yes Assessment to: Remove Date of Insertion: Oct 21, 2016 Vascular Central Line Catheter: No A/P Problem List: (1) Sepsis ICD Code: A41.9 Status: Resolved (2) UTI (urinary tract infection) ICD Code: N39.0 Status: Acute (3) Acute kidney injury ICD Code: N17.9 Status: Acute (4) Encephalopathy ICD Code: G93.40 Status: Acute (5) Hypertension ICD Code: I10 Status: Chronic (6) Coronary artery disease ICD Code: I25.10 Status: Chronic Assessment and Plan 1. Sepsis secondary to UTI: Continue antibiotics. Urine culture growing Klebsiella. Change from Zosyn to Rocephin. 2. Possible dental abscess: Continue antibiotics. Follow-up with dentist as outpatient. 3. Metabolic encephalopathy: Secondary to sepsis. Improving. 4. Dementia: Continue home medications. 5. Hypertension: Continue losartan, amlodipine, clonidine. 6. Coronary artery disease: Continue Plavix. 7. GI prophylaxis: Protonix. 8. DVT prophylaxis: Heparin, SCDs. Thierry Ny MD Oct 24, 2016 10:36
[2016-10-24 11:21] LABS: AUTOMATED NEUTROPHIL # 3.6 TH/MM3 (1.8-7.7); BASOPHIL % 0.6 % (0.0-2.0); EOSINOPHIL # 0.2 TH/MM3 (0-0.4); EOSINOPHIL % 3.7 % (0.0-4.0); HEMATOCRIT 33.2 % (35.0-46.0); HEMO FLAGS DIFF FINAL; LYMPHOCYTE # 1.4 TH/MM3 (1.0-4.8); MEAN CELL VOLUME 85.3 FL (80.0-100.0); MEAN CORPUSCULAR HEMOGLOBIN 27.1 PG (27.0-34.0); MEAN CORPUSCULAR HGB CONC 31.7 % (32.0-36.0); MONO % 12.1 % (0.0-8.0); NEUT % 59.6 % (16.0-70.0); PLATELET COUNT 192 TH/MM3 (150-450); RED BLOOD COUNT 3.89 MIL/MM3 (4.00-5.30); RED CELL DISTRIBUTION WIDTH 12.7 % (11.6-17.2)
[2016-10-24 11:37] LABS: BICARBONATE 28.7 MEQ/L (21.0-32.0); POTASSIUM 3.8 MEQ/L (3.5-5.1)
[2016-10-24] MEDS: cefTRIAXone INJ 1,000 MG in SODIUM CHLORIDE 0.9% INJ 100 ML IV SCH (13:10)
[2016-10-24] MEDS: DONEPEZIL HCL 5 MG TAB PO SCH (21:51)
[2016-10-25] VITALS (8 sets, daily range): BP systolic 130–167; BP diastolic 61–77; PULSE 58–73; RESP 18–22; TEMP 98–98.8; O2SAT 96–99
[2016-10-25] MEDS: HEPARIN SODIUM - SQ 10,000 UNITS/ML VIAL SQ SCH ×2 (01:14→11:36)
[2016-10-25] MEDS: CHLORHEXIDINE GLUCONATE 2 % 1 PACK (2 CLOTHS) TOP SCH (04:00)
[2016-10-25] MEDS: RESP: ALBUTEROL 2.5 MG/IPRATROPIUM 0.5 MG NEB (SCH) INH ×2 (04:11→10:07)
[2016-10-25] MEDS: INSULIN ASPART SUPPLEMENTAL SCALE SQ SCH ×4 (05:49→20:55)
[2016-10-25] MEDS: DOCUSATE SODIUM 50 MG/SENNA 8.6 MG TAB PO SCH ×2 (09:00→20:52)
[2016-10-25] MEDS: ARIPiprazole 10 MG TAB PO SCH (09:54)
[2016-10-25] MEDS: CLOPIDOGREL 75 MG TAB PO SCH (09:54)
[2016-10-25] MEDS: cloNIDine HCL 0.1 MG TAB PO SCH ×2 (09:54→20:52)
[2016-10-25] MEDS: LOSARTAN 50 MG TAB PO SCH (09:55)
[2016-10-25] MEDS: FUROSEMIDE 40 MG TAB PO SCH (09:55)
[2016-10-25] MEDS: PANTOPRAZOLE SODIUM 40 MG VIAL IV SCH (09:55)
[2016-10-25 10:55] LABS: AUTOMATED NEUTROPHIL # 3.2 TH/MM3 (1.8-7.7); BASOPHIL % 0.6 % (0.0-2.0); EOSINOPHIL # 0.2 TH/MM3 (0-0.4); EOSINOPHIL % 2.4 % (0.0-4.0); HEMATOCRIT 31.9 % (35.0-46.0); HEMO FLAGS DIFF FINAL; LYMPH % 33.8 % (9.0-44.0); LYMPHOCYTE # 2.1 TH/MM3 (1.0-4.8); MEAN CORPUSCULAR HEMOGLOBIN 27.7 PG (27.0-34.0); MEAN CORPUSCULAR HGB CONC 33.3 % (32.0-36.0); MONO % 12.4 % (0.0-8.0); NEUT % 50.8 % (16.0-70.0); PLATELET COUNT 189 TH/MM3 (150-450); RED BLOOD COUNT 3.84 MIL/MM3 (4.00-5.30); RED CELL DISTRIBUTION WIDTH 12.8 % (11.6-17.2); WHITE BLOOD COUNT 6.3 TH/MM3 (4.0-11.0)
[2016-10-25 11:25] LABS: BICARBONATE 29.7 MEQ/L (21.0-32.0); POTASSIUM 4.2 MEQ/L (3.5-5.1)
--- NOTE | 2016-10-25 11:34 | HHI.PR ---
Subjective Remarks Follow-up urosepsis, encephalopathy. Patient states that she feels okay today. Denies pain, dyspnea, nausea, vomiting. Objective Vitals Vital Signs Date Time Temp Pulse Resp B/P Pulse Ox O2 Delivery O2 Flow Rate FiO2 10/25/16 10:08 96 21 10/25/16 08:00 98.8 72 22 130/61 98 10/25/16 08:00 59 10/25/16 04:00 98.0 73 20 142/63 98 10/25/16 00:00 98.6 69 20 162/66 98 10/24/16 22:00 100 Nasal Cannula 3.00 10/24/16 21:57 Nasal Cannula 2.00 10/24/16 20:00 62 10/24/16 20:00 97.6 63 20 149/79 100 10/24/16 18:59 148/65 10/24/16 16:00 97.9 70 24 172/72 97 10/24/16 16:00 Nasal Cannula 2.50 10/24/16 13:16 Nasal Cannula 2.50 10/24/16 12:00 98.4 61 24 142/64 97 I/O 10/24/16 10/24/16 10/24/16 10/25/16 10/25/16 10/25/16 07:00 15:00 23:00 07:00 15:00 23:00 Intake Total 360 ml 460 ml 240 ml 120 ml Output Total 250 ml 800 ml Balance 110 ml -340 ml 240 ml 120 ml Intake Oral 360 ml 360 ml 240 ml 120 ml IV Total 100 ml Output Urine Total 250 ml 800 ml # Voids 2 3 # Bowel Movements 0 Result Diagram: 10/25/16 1037 10/25/16 1037 Imaging Last Impressions Head CT 10/21/16954 Signed Impressions: Service Date/Time: Friday, October 21, 2016 10:43 - CONCLUSION: 1. Senescent changes. 2. No acute intracranial normality. Tushar Vee MD Chest X-Ray 10/21/16954 Signed Impressions: Service Date/Time: Friday, October 21, 2016 10:05 - CONCLUSION: 1. No acute focal pulmonary infiltrate or pulmonary vascular congestion. 2. Mild cardiomegaly. 3. Degenerative changes involving the thoracic spine and bilateral shoulders. Chuck Vu MD Objective Remarks General: Obese, elderly female in no acute distress. Heart: Regular rate and rhythm. No murmur. Lungs: Clear to auscultation bilaterally. No wheezes, rales, or rhonchi. Breathing is nonlabored. Abdomen: Soft, nontender, nondistended. Extremities: Trace to 1+ bilateral lower extremity edema. SCDs. Psych: Alert, somewhat confused. Procedures None Urinary Catheter: No Vascular Central Line Catheter: No A/P Problem List: (1) Sepsis ICD Code: A41.9 Status: Resolved (2) UTI (urinary tract infection) ICD Code: N39.0 Status: Acute (3) Acute kidney injury ICD Code: N17.9 Status: Acute (4) Encephalopathy ICD Code: G93.40 Status: Acute (5) Hypertension ICD Code: I10 Status: Chronic (6) Coronary artery disease ICD Code: I25.10 Status: Chronic Assessment and Plan 1. Sepsis secondary to UTI: Continue antibiotics. Urine culture growing Klebsiella. Changed from Zosyn to Rocephin. 2. Possible dental abscess: Continue antibiotics. Follow-up with dentist as outpatient. 3. Metabolic encephalopathy: Secondary to sepsis. Improving. 4. Dementia: Continue home medications. 5. Hypertension: Continue losartan, amlodipine, clonidine. 6. Coronary artery disease: Continue Plavix. 7. GI prophylaxis: Protonix. 8. DVT prophylaxis: Heparin, SCDs. Discharge Planning Patient will need SNF at discharge. Possible discharge next 1-2 days pending continued clinical improvement. Thierry Ny MD Oct 25, 2016 11:34
[2016-10-25] MEDS: cefTRIAXone INJ 1,000 MG in SODIUM CHLORIDE 0.9% INJ 100 ML IV SCH (11:36)
[2016-10-25] MEDS: DONEPEZIL HCL 5 MG TAB PO SCH (20:52)
[2016-10-26] VITALS: BP 152/67; PULSE 56; RESP 18; TEMP 98.7; O2SAT 97
[2016-10-26] MEDS: HEPARIN SODIUM - SQ 10,000 UNITS/ML VIAL SQ SCH ×2 (01:00→12:43)
[2016-10-26 04:00] VITALS: BP 134/63; PULSE 55; RESP 18; TEMP 97.8; O2SAT 98
[2016-10-26] MEDS: CHLORHEXIDINE GLUCONATE 2 % 1 PACK (2 CLOTHS) TOP SCH (04:00)
[2016-10-26 05:55] LABS: BASOPHIL % 0.5 % (0.0-2.0); EOSINOPHIL # 0.2 TH/MM3 (0-0.4); EOSINOPHIL % 3.9 % (0.0-4.0); HEMATOCRIT 34.2 % (35.0-46.0); HEMO FLAGS DIFF FINAL; LYMPH % 27.8 % (9.0-44.0); LYMPHOCYTE # 1.5 TH/MM3 (1.0-4.8); MEAN CELL VOLUME 85.3 FL (80.0-100.0); MEAN CORPUSCULAR HEMOGLOBIN 27.5 PG (27.0-34.0); MEAN CORPUSCULAR HGB CONC 32.2 % (32.0-36.0); MONO % 13.9 % (0.0-8.0); NEUT % 53.9 % (16.0-70.0); PLATELET COUNT 202 TH/MM3 (150-450); RED BLOOD COUNT 4.01 MIL/MM3 (4.00-5.30); RED CELL DISTRIBUTION WIDTH 12.5 % (11.6-17.2); WHITE BLOOD COUNT 5.5 TH/MM3 (4.0-11.0)
[2016-10-26 06:14] LABS: BICARBONATE 29.7 MEQ/L (21.0-32.0); POTASSIUM 3.9 MEQ/L (3.5-5.1)
[2016-10-26] MEDS: INSULIN ASPART SUPPLEMENTAL SCALE SQ SCH ×2 (06:18→11:00)
[2016-10-26 08:00] VITALS: BP 166/74; PULSE 57; RESP 20; TEMP 97.4; O2SAT 98
[2016-10-26] MEDS: cloNIDine HCL 0.1 MG TAB PO SCH (09:35)
[2016-10-26] MEDS: ARIPiprazole 10 MG TAB PO SCH (09:35)
[2016-10-26] MEDS: CLOPIDOGREL 75 MG TAB PO SCH (09:35)
[2016-10-26] MEDS: LOSARTAN 50 MG TAB PO SCH (09:36)
[2016-10-26] MEDS: FUROSEMIDE 40 MG TAB PO SCH (09:36)
[2016-10-26] MEDS: DOCUSATE SODIUM 50 MG/SENNA 8.6 MG TAB PO SCH (09:36)
[2016-10-26] MEDS: PANTOPRAZOLE SODIUM 40 MG VIAL IV SCH (09:36)
[2016-10-26 12:00] VITALS: BP 153/67; PULSE 55; RESP 18; TEMP 97.8; O2SAT 100
[2016-10-26] MEDS: cefTRIAXone INJ 1,000 MG in SODIUM CHLORIDE 0.9% INJ 100 ML IV SCH (12:44)
[2016-10-26] MEDS ORDERED: CEFU1TAB20 PO (13:30)
--- NOTE | 2016-10-26 13:30 | HHI.DS ---
Discharge Summary Admission Date Oct 21, 2016 at 11:57 Discharge Date: Oct 26, 2016 Admitting Diagnosis SEPSIS, acute kidney injury, elevated troponin (1) Sepsis ICD Code: A41.9 (2) UTI (urinary tract infection) ICD Code: N39.0 (3) Acute kidney injury ICD Code: N17.9 (4) Encephalopathy ICD Code: G93.40 (5) Hypertension ICD Code: I10 (6) Coronary artery disease ICD Code: I25.10 Procedures None Brief History - From Admission History of present illness from the admitting physician This is an 86-year-old female with a history of rheumatoid arthritis, hypertension, coronary artery disease, Parkinson's disease, dementia, that presented to the ED with altered mental status. Per family report, the patient apparently was last seen normal last night before bed. When family members woke her up to give her a bath, she was severely lethargic and weak with altered mental status. The patient is a poor historian. Alert to name, and location. Per family report the patient is noted to have an infected tooth and was scheduled to have tooth extraction today .In the ED the patient's temperature was noted to be 101.5, laboratory and imaging studies were performed and the patient was noted to have probable urosepsis, empiric antibiotics were initiated. CT brain was within normal limits. Critical Care medicine was contacted for management of patient. CBC/BMP: 10/26/16 0508 10/26/16 0505 Significant Findings Laboratory Tests Test 10/24/16 10/25/16 10/26/16 10:52 10:37 05:08 Red Blood Count 3.89 MIL/MM3 3.84 MIL/MM3 (4.00-5.30) (4.00-5.30) Hemoglobin 10.5 GM/DL 10.6 GM/DL 11.0 GM/DL (11.6-15.3) (11.6-15.3) (11.6-15.3) Hematocrit 33.2 % 31.9 % 34.2 % (35.0-46.0) (35.0-46.0) (35.0-46.0) Mean Corpuscular Hemoglobin 31.7 % Concent (32.0-36.0) Monocytes (%) (Auto) 12.1 % 12.4 % 13.9 % (0.0-8.0) (0.0-8.0) (0.0-8.0) Chloride Level 111 MEQ/L 109 MEQ/L (98-107) (98-107) Anion Gap 3 MEQ/L (5-15) Estimat Glomerular Filtration 79 ML/MIN (>89) 83 ML/MIN (>89) Rate Random Glucose 108 MG/DL (74-106) Imaging Last Impressions Head CT 10/21/16954 Signed Impressions: Service Date/Time: Wednesday, October 21, 2016 10:43 - CONCLUSION: 1. Senescent changes. 2. No acute intracranial normality. Tushar Vee MD Chest X-Ray 10/21/16954 Signed Impressions: Service Date/Time: Friday, October 21, 2016 10:05 - CONCLUSION: 1. No acute focal pulmonary infiltrate or pulmonary vascular congestion. 2. Mild cardiomegaly. 3. Degenerative changes involving the thoracic spine and bilateral shoulders. Chuck Vu MD PE at Discharge General: Obese, elderly female in no acute distress. Heart: Regular rate and rhythm. No murmur. Lungs: Clear to auscultation bilaterally. No wheezes, rales, or rhonchi. Breathing is nonlabored. Abdomen: Soft, nontender, nondistended. Extremities: Trace to 1+ bilateral lower extremity edema. SCDs. Psych: Alert, calm. Pt update on day of discharge Patient reports she is feeling okay. No pain. No fevers or chills. Hospital Course 86-year-old female admitted for sepsis secondary to UTI. Patient was also encephalopathy at the time. She was initially admitted to the intensive care unit under the critical care service. Patient stabilized and later transferred to the hospitalist service. She was treated with vancomycin and Zosyn initially. Her urine culture grew pansensitive Klebsiella. The patient is discharged on cefuroxime to complete the course of antibiotics. Other conditions treated include: Possible dental abscess: Continue antibiotics. Follow-up with dentist as outpatient. Metabolic encephalopathy: Secondary to sepsis. Improving. Dementia: Continue home medications. Hypertension: Continue losartan, amlodipine, clonidine. Coronary artery disease: Continue Plavix. . Pt Condition on Discharge: Good Discharge Disposition: Discharge to SNF Discharge Time: > 30 minutes Discharge Instructions DIET: Follow Instructions for: Diabetic Diet Activities you can perform: Regular-No Restrictions New Medications: Cefuroxime (Cefuroxime) 500 Mg Tab 500 MG PO BID Infection #14 Ref 0 TAB Continued Medications: Amlodipine (Amlodipine) 10 Mg Tab 10 MG PO DAILY Blood Pressure Management #30 Ref 0 TAB Aripiprazole (Aripiprazole) 10 Mg Tab 10 MG PO DAILY #30 Ref 0 TAB Buspirone (Buspirone) 15 Mg Tab 15 MG PO TID Anxiety Ref 0 TAB Clonidine (Clonidine) 0.1 Mg Tab 0.1 MG PO BID Blood Pressure Management #60 Ref 0 TAB Clopidogrel (Clopidogrel) 75 Mg Tab 75 MG PO DAILY Blood Clot Prevention #30 Ref 0 TAB Donepezil (Donepezil) 5 Mg Tab 5 MG PO HS Dementia #30 Ref 0 TAB Furosemide (Furosemide) 40 Mg Tab 40 MG PO DAILY #30 Ref 0 TAB Ibuprofen (Ibuprofen) 800 Mg Tab 800 MG PO Q8H PRN Pain/Inflammation #60 Ref 0 TAB Losartan (Losartan) 50 Mg Tab 50 MG PO DAILY Blood Pressure Management #30 Ref 0 TAB Trazodone (Trazodone) 50 Mg Tab 50 MG PO HS Control Depression #30 Ref 0 TAB Luther Samuels MD Oct 26, 2016 13:30 presented to the ED with altered mental status. Per family report, the patient apparently was last seen normal last night before bed. When family members woke her up to give her a bath, she was severely lethargic and weak with altered mental status. The patient is a poor historian. Alert to name, and location. Per family report the patient is noted to have an infected tooth and was scheduled to have tooth extraction today .In the ED the patient's temperature was noted to be 101.5, laboratory and imaging studies were performed and the patient was noted to have probable urosepsis, empiric antibiotics were initiated. CT brain was within normal limits. Critical Care medicine was contacted for management of patient. Subjective: 10/22: Tmax 99.9. No acute issues overnight. Swallow study performed, mechanical soft diet initiated this a.m.. Patient's home medications, diuretics resumed. Morning labs pending. Patient awake and responsive, per daughter, normal behavior. 10/23: No acute issues overnight. Gram-negative rods noted with urinary culture. Patient continues on Zosyn. Tolerating a diet, physical therapy has been instituted. Pt Condition on Discharge: Good Discharge Disposition: Discharge to SNF Discharge Instructions DIET: Follow Instructions for: Diabetic Diet Activities you can perform: Regular-No Restrictions Luther Samuels MD Oct 26, 2016 13:30
== END 2016-10-26 15:38 | DRG 871 ==
LOC: NEPC 09:44 → NEDA 11:57 → HIMW 14:20 → HIME 10-22 12:00 → N04A 10-23 12:42
PROVIDERS: ADMIT Family Medicine; ATTEND Family Medicine
DX: A41.9 Sepsis, unspecified organism (principal); G93.41 Metabolic encephalopathy; N17.9 Acute kidney failure, unspecified; N39.0 Urinary tract infection, site not specified; M06.9 Rheumatoid arthritis, unspecified; R65.20 Severe sepsis without septic shock; G20 Parkinson's disease; F02.80 Dementia in other diseases classified elsewhere, unspecified severity, without behavioral disturbance, psychotic disturbance, mood disturbance, and anxiety; I10 Essential (primary) hypertension; I25.10 Atherosclerotic heart disease of native coronary artery without angina pectoris; H91.90 Unspecified hearing loss, unspecified ear; K04.7 Periapical abscess without sinus; F41.9 Anxiety disorder, unspecified; F32.9 Major depressive disorder, single episode, unspecified; B96.1 Klebsiella pneumoniae [K. pneumoniae] as the cause of diseases classified elsewhere; I27.2 Other secondary pulmonary hypertension; E11.9 Type 2 diabetes mellitus without complications; I08.3 Combined rheumatic disorders of mitral, aortic and tricuspid valves; E66.9 Obesity, unspecified; Z68.36 Body mass index [BMI] 36.0-36.9, adult; I25.2 Old myocardial infarction; Z86.73 Personal history of transient ischemic attack (TIA), and cerebral infarction without residual deficits
CPT/HCPCS: 70450; 71010; 76937; 80048; 80053; 81001; 82140; 82550; 82948; 83605; 83735; 83880; 84100; 84484; 85025; 85027; 85610; 85730; 87040; 87077; 87086; 87186; 87449; 87641; 87804; 93005; 93306; 94640; 96365; C9113; J0360; J0696; J1644; J2543; J3370; J7030; J7042; J7050

== ENCOUNTER 2016-11-25 14:29 | Emergency (ER) | payer MEDICARE, MEDICAID ==
[~2016-11-25] VITALS: Ht 170.2 cm; Wt 150.0 kg
[~2016-11-25 14:29] MED LIST changes: -1-ME1LIQ PO; -ALPR.25 PO; +AMLO10TA2 PO; -ARIC5TAB PO; +ARIP1TAB12 PO; -ARIP1TAB46 PO; +CEFU1TAB20 PO; -CLON.1 PO; +CLON0.1T PO; -CLOP75 PO; +CLOP75TA PO; -DOCU1CAP39 PO; +DONE5TAB7 PO; -DUONI INH; -FURO1TAB93 PO; +FURO40TA PO; +IBUP800T23 PO; -KCL10 PO; -LEVA500T PO; -LOSA25 PO; +LOSA50TA PO; -PRED50 PO; -TRAM50 PO; +TRAZ50TA12 PO; -TRAZ50TA4 PO; -WARF6 PO
[2016-11-25 14:42] VITALS: BP 209/93; PULSE 77; RESP 24; TEMP 98.2; O2SAT 98
--- NOTE | 2016-11-25 15:22 | PD ---
HPI Chief Complaint: Injury Time Seen by Provider: 15:18 Travel History International Travel<30 days: No Contact w/Intl Traveler<30days: No History of Present Illness HPI 86-year-old female presents to the emergency department via EMS for evaluation after a fall that occurred at the dentist office. Her daughter is at bedside. Apparently, the patient was being wheeled to the bathroom when the wheel caught on the side of the door and the patient fell. The daughter tried to catch her, but she did hit her left shoulder. Her daughter and the patient unsure if she hit her head. She denies any headache or neck pain. No abdominal pain. No nausea, vomiting, diarrhea. No back pain. She is mainly complaining of left shoulder pain. However, she also complains of entire left arm pain and left rib pain as well. The daughter states that she is always shaky and this is chronic for her. PFSH Past Medical History Hx Anticoagulant Therapy: Yes Arthritis: Yes Asthma: No Autoimmune Disease: No Blood Disorders: No Anxiety: Yes Depression: Yes Heart Rhythm Problems: No Cancer: No Cardiovascular Problems: Yes High Cholesterol: No Chemotherapy: Yes Chest Pain: No Congestive Heart Failure: Yes COPD: No Cerebrovascular Accident: Yes Diabetes: Yes Patient Takes Glucophage: No Diminished Hearing: Yes (HEARING AIDS; [place]) Endocrine: No Gastrointestinal Disorders: No Genitourinary: Yes (history of uti) Hypertension: Yes Immune Disorder: No Musculoskeletal: Yes Neurologic: No Psychiatric: Yes Reproductive: No Respiratory: Yes Immunizations Current: Yes Myocardial Infarction: Yes Sleep Apnea: No Thyroid Disease: No PNEUMOCCOCAL Vaccine (Year): 3 Menopausal: Yes : 11 Para: 11 Past Surgical History Joint Replacement: Yes (bilateral knees) Pacemaker: No Other Surgery: Yes Social History Alcohol Use: No Tobacco Use: No Substance Use: No Allergies-Medications (Allergen,Severity, Reaction): Coded Allergies: *MDRO Multi-Drug Resistant Organism (Verified Adverse Reaction, Unknown, MRSA, 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 Reported Meds & Prescriptions Reported Meds & Active Scripts Active Reported Losartan (Losartan Potassium) 50 Mg Tab 50 Mg PO BID Amlodipine (Amlodipine Besylate) 10 Mg Tab 10 Mg PO DAILY Furosemide 40 Mg Tab 40 Mg PO DAILY Buspirone (Buspirone HCl) 15 Mg Tab 15 Mg PO TID Trazodone (Trazodone HCl) 50 Mg Tab 50 Mg PO HS Clonidine (Clonidine HCl) 0.1 Mg Tab 0.1 Mg PO BID Clopidogrel (Clopidogrel Bisulfate) 75 Mg Tab 75 Mg PO DAILY Donepezil 5 Mg Tab 5 Mg PO HS Aripiprazole 10 Mg Tab 10 Mg PO DAILY Review of Systems Except as stated in HPI: all other systems reviewed are Neg Physical Exam Narrative GENERAL: Well-nourished, well-developed elderly female patient, afebrile. SKIN: Focused skin assessment warm/dry. No lacerations or abrasions. HEAD: Normocephalic. Atraumatic EYES: No scleral icterus. No injection or drainage. NECK: Supple, trachea midline. No JVD or lymphadenopathy. CARDIOVASCULAR: Regular rate and rhythm without murmurs, gallops, or rubs. Bilateral radial pulses are 2+. RESPIRATORY: Breath sounds equal bilaterally. No accessory muscle use. Lungs sounds are clear to auscultation. GASTROINTESTINAL: Abdomen soft, non-tender, nondistended. MUSCULOSKELETAL: No cyanosis, or edema. Patient has tenderness over left shoulder, left humerus, left forearm, left chest wall. BACK: Nontender without obvious deformity. No CVA tenderness. No midline spinal tenderness to palpation. Data Data Last Documented VS Vital Signs Date Time Temp Pulse Resp B/P Pulse Ox O2 Delivery O2 Flow Rate FiO2 11/25/16 14:48 Room Air 11/25/16 14:42 98.2 77 24 209/[address] Brain W/O Iv Contrast(Rout) (11/25/16 ) Ct Cerv Spine W/O Contrast (11/25/16 ) Shoulder, Complete (>2vws) (11/25/16 ) Humerus (Min 2vws) (11/25/16 ) Forearm (2vws) (11/25/16 ) Chest, Single Ap (11/25/16 ) Acetamin-Hydrocod 325-5 Mg ([place] 5-325 (11/25/16 15:30) MDM Medical Decision Making Medical Screen Exam Complete: Yes Emergency Medical Condition: Yes Medical Record Reviewed: Yes Interpretation(s) Last Impressions Shoulder X-Ray 11/25/16 0000 Signed Impressions: Service Date/Time: Friday, November 25, 2016 16:28 - CONCLUSION: Negative for fracture, chronic rotator cuff tear. Mike Franklin MD FACR Radius/Ulna X-Ray 11/25/16 0000 Signed Impressions: Service Date/Time: Friday, November 25, 2016 16:41 - CONCLUSION: Degenerative changes, negative for fracture. Mike Franklin MD FACR Humerus X-Ray 11/25/16 0000 Signed Impressions: Service Date/Time: Wednesday, November 25, 2016 16:31 - CONCLUSION: Negative for humeral fracture. High riding humeral head suggesting chronic rotator cuff tear. Mike Franklin MD FACR Head CT 11/25/16 0000 Signed Impressions: Service Date/Time: Friday, November 25, 2016 16:17 - CONCLUSION: No acute intracranial abnormality is identified. Jose Taylor MD Chest X-Ray 11/25/16 0000 Signed Impressions: Service Date/Time: Wednesday, November 25, 2016 16:36 - CONCLUSION: Compensated cardiomegaly otherwise negative Mike Franklin MD FACR Ct cervical spine CONCLUSION: Extensive degenerative changes as described above. I do not see a fracture. There is mild to moderate neural foraminal encroachment and spinals stenosis evident Differential Diagnosis Fracture versus contusion versus sprain versus intracranial abnormality versus cervical strain versus cervical fracture Narrative Course 86-year-old female presents to the emergency room in via EMS for evaluation after a fall. CT of the brain and cervical spine are ordered and pending. X- ray of the left shoulder, left humerus, left forearm, chest are ordered and pending. Patient is given Lortab 5/25 mg by mouth for pain. CT of the brain shows no acute intracranial abnormality. CT of the cervical spine shows extensive degenerative changes, no fracture. X-ray of the left shoulder shows no fracture, chronic rotator cuff tear. X-ray of the left humerus is negative for fracture. X-ray of the left forearm is negative for fracture. Chest x-ray shows compensated cardiomegaly, otherwise negative. Imaging results are reassuring. Patient will be discharged home. Patient verbalizes agreement and understanding. The patient was discharged in stable condition with instructions, including return instructions and follow up instructions. Diagnosis Primary Impression: Contusion Qualified Code: S40.012A - Contusion of left shoulder, initial encounter Additional Impressions: Fall Qualified Code: W19.XXXA - Fall, initial encounter Closed head injury Qualified Code: S09.90XA - Closed head injury, initial encounter Referrals: Primary Care Physician call for appointment Patient Instructions: Contusion in Adults (ED), Fall Prevention for Older Adults (ED), General Instructions Additional Instructions: Ice for 20 mins 4-5 times daily. [id number] Tylenol or ibuprofen as needed for pain. Follow-up with your primary care physician. Return to the emergency department for any acute worsening of symptoms. Med/Other Pt SpecificInfo: No Change to Meds Disposition: 01 DISCHARGE HOME Condition: Stable Maria Luz eLe Nov 25, 2016 15:22
[2016-11-25] MEDS ORDERED: ACETAMINOPHEN/HYDROcodone 325 MG/5 MG TAB PO ONE (15:30)
--- NOTE | 2016-11-25 16:40 | RADRPT ---
EXAM DATE/TIME: 11/25/2016 16:17 [facility] COMPARISON: CT BRAIN W/O CONTRAST, October 21, 2016, 10:43. INDICATIONS : Fall. Head and neck pain. RADIATION DOSE: 41.41 CTDIvol (mGy) MEDICAL HISTORY : Cardiovascular disease. Hypertension. Congestive heart failure. SURGICAL HISTORY : None. ENCOUNTER: Initial ACUITY: 1 day PAIN SCALE: 3/10 LOCATION: Bilateral cranial TECHNIQUE: Multiple contiguous axial images were obtained of the head. Using automated exposure control and adj ustment of the mA and/or kV according to patient size, radiation dose was kept as low as reasonably a chievable to obtain optimal diagnostic quality images. DICOM format image data is available electro nically for review and comparison. FINDINGS: There is mild motion artifact. CEREBRUM: There is mild cerebral atrophy. Ventricles are normal in size. There is calcification of the intracra nial internal carotid arteries. No midline shift, mass lesion, hemorrhage or acute infarction. No e xtra-axial fluid collections are seen. POSTERIOR FOSSA: The cerebellum and brainstem demonstrate no acute finding. The 4th ventricle is midline. The cerebe llopontine angle is unremarkable. EXTRACRANIAL: Visualized sinuses are clear. SKULL: The calvaria is intact. No evidence of skull fracture. CONCLUSION: No acute intracranial abnormality is identified. Jose Taylor MD on November 25, 2016 at 16:36 Board Certified Radiologist. This report was verified electronically.
--- NOTE | 2016-11-25 16:54 | RADRPT ---
EXAM DATE/TIME: 11/25/2016 16:17 [facility] COMPARISON: No previous studies available for comparison. INDICATIONS : Fall. Head and neck pain. RADIATION DOSE: 42.99 CTDIvol (mGy) MEDICAL HISTORY : Cardiovascular disease. Hypertension. Congestive heart failure. SURGICAL HISTORY : None. ENCOUNTER: Initial ACUITY: 1 day PAIN SCALE: 2/10 LOCATION: Bilateral neck TECHNIQUE: Volumetric scanning of the cervical spine was performed. Multiplanar reconstructions i n the sagittal, coronal and oblique axial planes were performed. Using automated exposure control a nd adjustment of the mA and/or kV according to patient size, radiation dose was kept as low as reason ably achievable to obtain optimal diagnostic quality images. DICOM format image data is available e lectronically for review and comparison. FINDINGS: There are extensive degenerative changes in the lumbar spine. Alignment is reasonably anatomic. Degenerative changes are seen at the C1-C2 articulation. C2-C3: Mild uncinate ridging is present with minimal bilateral neural foraminal encroachment. C3-C4: There is moderate uncinate ridging with bilateral neural foraminal encroachment. Neural fora gretta are adequate. C4-C5: Marked uncinate ridging is present with bilateral neural foraminal encroachment. There is mi ld spinal stenosis and moderate neural foraminal encroachment. C5-C6: Moderate uncinate ridging is present with bilateral neural foraminal encroachment worse on th e left than the right. Spinal stenosis is moderate. C6-C7: Mild disc bulging is present. There is minimal spinal stenosis. Neural foramina are adequate . C7-T1: The bony spinal canal is normal in size. No evidence of disc bulge or herniation. The neura l foramina are bilaterally patent. CONCLUSION: Extensive degenerative changes as described above. I do not see a fracture. There is mild to moderate neural foraminal encroachment and spinals stenosis evident. Mike Franklin MD FACR on November 25, 2016 at 16:46 Board Certified Radiologist. This report was verified electronically.
--- NOTE | 2016-11-25 17:08 | RADRPT ---
EXAM DATE/TIME: 11/25/2016 16:31 [facility] COMPARISON: No previous studies available for comparison. INDICATIONS : Left humerus pain post fall today MEDICAL HISTORY : None. SURGICAL HISTORY : ENCOUNTER: Initial ACUITY: 1 day PAIN SCORE: 10/10 LOCATION: Left entire humerus FINDINGS: There is high riding humeral head without humerus fracture. CONCLUSION: Negative for humeral fracture. High riding humeral head suggesting chronic rotator cuff tear. Mike Franklin MD FACR on November 25, 2016 at 17:06 Board Certified Radiologist. This report was verified electronically.
--- NOTE | 2016-11-25 17:14 | RADRPT ---
EXAM DATE/TIME: 11/25/2016 16:36 [facility] COMPARISON: CHEST SINGLE AP, October 21, 2016, 10:05. INDICATIONS : Trauma to chest post fall today MEDICAL HISTORY : None. SURGICAL HISTORY : None. ENCOUNTER: Initial ACUITY: 1 day PAIN SCORE: 0/10 LOCATION: Bilateral chest FINDINGS: The lungs are clear. The heart is minimally enlarged. The pulmonary vascularity is normal. There is n o evidence for infiltrate or failure. The portion of the bony skeleton visualized is unremarkable. There is no rib fracture. Degenerativ e changes are present at both shoulders. CONCLUSION: Compensated cardiomegaly otherwise negative Mike Franklin MD FACR on November 25, 2016 at 17:12 Board Certified Radiologist. This report was verified electronically.
--- NOTE | 2016-11-25 17:16 | RADRPT ---
EXAM DATE/TIME: 11/25/2016 16:28 [facility] COMPARISON: SHOULDER LEFT COMPLETE (>2VWS), May 15, 2014, 15:22. INDICATIONS : Left shoulder pain post fall today MEDICAL HISTORY : None. SURGICAL HISTORY : None. ENCOUNTER: Initial ACUITY: 1 day PAIN SCORE: 10/10 LOCATION: Left entire shoulder FINDINGS: There are degenerative changes evident with high riding humeral head without fracture. Suggest chron ic rotator cuff tear. CONCLUSION: Negative for fracture, chronic rotator cuff tear. Mike Franklin MD FACR on November 25, 2016 at 17:13 Board Certified Radiologist. This report was verified electronically.
--- NOTE | 2016-11-25 17:20 | RADRPT ---
EXAM DATE/TIME: 11/25/2016 16:41 [facility] COMPARISON: No previous studies available for comparison. INDICATIONS : Left forearm pain post fall today MEDICAL HISTORY : None. SURGICAL HISTORY : None. ENCOUNTER: Initial ACUITY: 1 day PAIN SCORE: 10/10 LOCATION: Left entire forearm FINDINGS: Two view examination of the left forearm demonstrates no evidence of fracture or dislocation. Bony m ineralization is normal. The soft tissue structures are intact. Degenerative changes are present in the wrist. CONCLUSION: Degenerative changes, negative for fracture. Mike Franklin MD FACR on November 25, 2016 at 17:16 Board Certified Radiologist. This report was verified electronically.
[2016-11-25 18:23] VITALS: BP 162/80
== END 2016-11-25 18:57 | disposition home or self-care (01) ==
LOC: NEPC 14:29
DX: S40.012A Contusion of left shoulder, initial encounter (principal); S09.90XA Unspecified injury of head, initial encounter; W05.0XXA Fall from non-moving wheelchair, initial encounter; Y92.531 Health care provider office as the place of occurrence of the external cause; E11.9 Type 2 diabetes mellitus without complications; H91.90 Unspecified hearing loss, unspecified ear; I11.0 Hypertensive heart disease with heart failure; I50.9 Heart failure, unspecified; Z86.73 Personal history of transient ischemic attack (TIA), and cerebral infarction without residual deficits; I25.2 Old myocardial infarction; I25.10 Atherosclerotic heart disease of native coronary artery without angina pectoris; Z79.01 Long term (current) use of anticoagulants
CPT/HCPCS: 70450; 71010; 72125; 73030; 73060; 73090; 99285

== ENCOUNTER 2017-08-10 12:26 | Emergency (ER) | payer MEDICARE, MEDICAID ==
[~2017-08-10 12:26] MED LIST changes: -CEFU1TAB20 PO; -IBUP800T23 PO
[2017-08-10 12:29] VITALS: BP 172/77; PULSE 183; RESP 24; TEMP 97.8; O2SAT 88
[2017-08-10 12:42] VITALS: BP 198/84; PULSE 71; RESP 18; O2SAT 97
[2017-08-10] MEDS ORDERED: methylPREDNISolone SOD SUCC 125 MG/2 ML VIAL IV PUSH ONE (12:45)
[2017-08-10] MEDS: RESP: ALBUTEROL 2.5 MG/IPRATROPIUM 0.5 MG NEB (SCH) INH ×2 (12:55→13:00)
[2017-08-10 12:57] VITALS: O2SAT 97
--- NOTE | 2017-08-10 13:00 | PD ---
HPI Chief Complaint: Respiratory Symptoms Time Seen by Provider: 12:38 Travel History International Travel<30 days: No Contact w/Intl Traveler<30days: No Traveled to known affect area: No History of Present Illness HPI 86-year-old female that presents to the ED for evaluation of shortness of breath and rash to her back. Patient has had the rash for some time and the been applying some hydrocortisone cream with minimal relief. Patient came here more because she has been feeling short of breath for the past couple of days. Per family member who is the one providing most of the information patient has been short of breath for some time. She does have a history of COPD and uses nebulizers at home. No oxygen. She has been more short of breath for the past couple of days. No fevers chills or sweats. No chest pain. No abdominal pain. No urinary symptoms. History of heart disease. She does have a history of hypertension as well as possible dementia. Per family member she sometimes does hallucinate but this is been ongoing for some time. She has a history of MRSA. Patient herself is not a good historian and really provide any information. From the medical record she does take Plavix and she does take Lasix. Patient does have a history of CHF. She does appear to have swelling to her legs. PFSH Past Medical History Hx Anticoagulant Therapy: Yes Arthritis: Yes Asthma: No Autoimmune Disease: No Blood Disorders: No Anxiety: Yes Depression: Yes Heart Rhythm Problems: No Cancer: No Cardiovascular Problems: Yes High Cholesterol: No Chemotherapy: Yes Chest Pain: No Congestive Heart Failure: Yes COPD: No Cerebrovascular Accident: Yes Diabetes: Yes Patient Takes Glucophage: No Diminished Hearing: Yes (HEARING AIDS; [place]) Endocrine: No Gastrointestinal Disorders: No Genitourinary: Yes (history of uti) Hypertension: Yes Immune Disorder: No Implanted Vascular Access Dvce: No Musculoskeletal: Yes Neurologic: No Psychiatric: Yes Reproductive: No Respiratory: Yes Immunizations Current: Yes Myocardial Infarction: Yes Sleep Apnea: No Thyroid Disease: No PNEUMOCCOCAL Vaccine (Year): 3 Menopausal: Yes : 11 Para: 11 Past Surgical History Joint Replacement: Yes (bilateral knees) Pacemaker: No Other Surgery: Yes Social History Alcohol Use: No Tobacco Use: No Substance Use: No Allergies-Medications (Allergen,Severity, Reaction): Coded Allergies: *MDRO Multi-Drug Resistant Organism (Verified Adverse Reaction, Unknown, MRSA, 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 Duoneb (Ipratropium-Albuterol Neb) 0.5-2.5 Mg/3 Ml Neb 1 Nebule INH Q4HR NEB Prednisone 20 Mg Tab 20 Mg PO BID 5 Days Reported Losartan (Losartan Potassium) 50 Mg Tab 50 Mg PO BID Amlodipine (Amlodipine Besylate) 10 Mg Tab 10 Mg PO DAILY Furosemide 40 Mg Tab 40 Mg PO DAILY Buspirone (Buspirone HCl) 15 Mg Tab 15 Mg PO TID Trazodone (Trazodone HCl) 50 Mg Tab 50 Mg PO HS Clonidine (Clonidine HCl) 0.1 Mg Tab 0.1 Mg PO BID Clopidogrel (Clopidogrel Bisulfate) 75 Mg Tab 75 Mg PO DAILY Donepezil 5 Mg Tab 5 Mg PO HS Aripiprazole 10 Mg Tab 10 Mg PO DAILY Review of Systems Except as stated in HPI: all other systems reviewed are Neg Physical Exam Narrative GENERAL: SKIN: Warm and dry. Patient has a darkened rash in rhomboid shape that is thick and dry on her mid lower back. Not painful. HEAD: Atraumatic. Normocephalic. EYES: Pupils equal and round. No scleral icterus. No injection or drainage. ENT: No nasal bleeding or discharge. Mucous membranes pink and moist. Tongue is midline. No uvula deviation. NECK: Trachea midline. No JVD. CARDIOVASCULAR: Regular rate and rhythm. No murmurs, S3, S4. RESPIRATORY: No accessory muscle use. Clear to auscultation. Breath sounds equal bilaterally. GASTROINTESTINAL: Abdomen soft, non-tender, nondistended. Hepatic and splenic margins not palpable. MUSCULOSKELETAL: Extremities without clubbing, cyanosis, or edema. No obvious deformities. Full range of motion of the upper and lower extremities bilaterally. 2+ pulses bilaterally. Patient does have 2+ pitting edema in the lower extremities. NEUROLOGICAL: Awake and alert. No obvious cranial nerve deficits. Motor grossly within normal limits. Five out of 5 muscle strength in the arms and legs. Normal speech. PSYCHIATRIC: Appropriate mood and affect; insight and judgment normal. Data Data Last Documented VS Vital Signs Date Time Temp Pulse Resp B/P (MAP) Pulse Ox O2 Delivery O2 Flow Rate FiO2 08/10/17 15:05 76 22 195/77 (116) 97 08/10/17 13:51 Room Air 08/10/17 12:29 97.8 Orders Orders Electrocardiogram (08/10/17 12:43) Complete Blood Count With Diff (08/10/17 12:43) Comprehensive Metabolic Panel (08/10/17 12:43) Ckmb (Isoenzyme) Profile (08/10/17 12:43) Troponin I (08/10/17 12:43) B-Type Natriuretic Peptide (08/10/17 12:43) Prothrombin Time / Inr (Pt) (08/10/17 12:43) Act Partial Throm Time (Ptt) (08/10/17 12:43) Urinalysis - C+S If Indicated (08/10/17 12:43) Magnesium (Mg) (08/10/17 12:43) Thyroid Stimulating Hormone (08/10/17 12:43) Chest, Single Ap (08/10/17 12:43) Iv Access Insert/Monitor (08/10/17 12:43) Ecg Monitoring (08/10/17 12:43) Oximetry (08/10/17 12:43) Methylprednisolone So Succ Inj (Solumedr (08/10/17 12:45) Albuterol-Ipratropium Neb (Duoneb Neb) (08/10/17 12:45) Ed Discharge Order (08/10/17 15:20) Azithromycin Inj (Zithromax Inj) (08/10/17 15:30) Duoneb X 1 Single Dose (08/10/17 15:30) Labs Laboratory Tests Test 08/10/17 13:30 White Blood Count 5.7 TH/MM3 Red Blood Count 4.65 MIL/MM3 Hemoglobin 13.2 GM/DL Hematocrit 39.8 % Mean Corpuscular Volume 85.7 FL Mean Corpuscular Hemoglobin 28.3 PG Mean Corpuscular Hemoglobin Concent 33.1 % Red Cell Distribution Width 13.3 % Platelet Count 193 TH/MM3 Mean Platelet Volume 10.0 FL Neutrophils (%) (Auto) 46.6 % Lymphocytes (%) (Auto) 38.9 % Monocytes (%) (Auto) 11.8 % Eosinophils (%) (Auto) 2.0 % Basophils (%) (Auto) 0.7 % Neutrophils # (Auto) 2.7 TH/MM3 Lymphocytes # (Auto) 2.2 TH/MM3 Monocytes # (Auto) 0.7 TH/MM3 Eosinophils # (Auto) 0.1 TH/MM3 Basophils # (Auto) 0.0 TH/MM3 CBC Comment DIFF FINAL Differential Comment Prothrombin Time 10.6 SEC Prothromb Time International Ratio 1.0 RATIO Activated Partial Thromboplast Time 27.4 SEC Blood Urea Nitrogen 20 MG/DL Creatinine 1.09 MG/DL Random Glucose 109 MG/DL Total Protein 8.4 GM/DL Albumin 3.6 GM/DL Calcium Level 8.8 MG/DL Magnesium Level 2.0 MG/DL Alkaline Phosphatase 80 U/L Aspartate Amino Transf (AST/SGOT) 40 U/L Alanine Aminotransferase (ALT/SGPT) 31 U/L Total Bilirubin 0.8 MG/DL Sodium Level 143 MEQ/L Potassium Level 4.1 MEQ/L Chloride Level 107 MEQ/L Carbon Dioxide Level 27.9 MEQ/L Anion Gap 8 MEQ/L Estimat Glomerular Filtration Rate 57 ML/MIN Total Creatine Kinase 99 U/L Troponin I 0.03 NG/ML B-Type Natriuretic Peptide 109 PG/ML Thyroid Stimulating Hormone 3rd Gen 1.430 uIU/ML MDM Medical Decision Making Medical Screen Exam Complete: Yes Emergency Medical Condition: Yes Medical Record Reviewed: Yes Interpretation(s) CBC & BMP Diagram 08/10/17 13:30 Total Protein 8.4 H, Albumin 3.6, Calcium Level 8.8, Magnesium Level 2.0, Alkaline Phosphatase 80, Aspartate Amino Transf (AST/SGOT) 40 H, Alanine Aminotransferase (ALT/SGPT) 31, Total Bilirubin 0.8 Last Impressions Chest X-Ray 08/10/17 1243 Signed Impressions: Service Date/Time: Thursday, August 10, 2017 13:12 - CONCLUSION: Mild cardiomegaly with left basilar subsegmental atelectasis. Travis Pedraza MD troponin and CKMB negative BNP in the 100s Differential Diagnosis Shortness of breath versus CHF exacerbation versus Alzheimer's versus sepsis versus hypertension versus COPD exacerbation Narrative Course 86-year-old female that presents to the ED for evaluation of shortness of breath your patient was properly examined and was found to have signs and symptoms of unclear etiology but definite concerning for CHF versus COPD. Labs and imaging ordered. Patient was initially found to be tachycardic with a low O2 sat. Patient had just came into triage and possibly from exertion from walking. Patient was evaluated in the room and her sat was better with oxygen on the 90s as well as her heart rate in the 70s. She does have a significant history of CHF and COPD. My attending Dr. Yeh evaluated the patient agrees with plan. Labs and imaging negative for acute disease. patient feels better after treatment. Discussed case with Dr Yeh who evaluated the patient and recommends discharge. Family and patient comfortable with this. Will treat for COPD exacerbation. Given azithromycin IV here and one more duoneb. Will treat with miconazole topical, prednisone, azithromycin, and refill of duonebs. F/u with PCP. See ED if worsening symptoms. Diagnosis Primary Impression: COPD exacerbation Additional Impression: Dermatitis Patient Instructions: General Instructions Additional Instructions: Motrin and Tylenol for pain and fever. Take meds as prescribed. Drink plenty of fluids. Follow-up with PCP. See ED for worsening symptoms. Med/Other Pt SpecificInfo: Prescription(s) given Scripts Miconazole Topical (Miconazole Topical) 2% Cream 1 APPLIC TOPICAL BID for 14 Days, GM 0 Refills Prov: Harika Yeh MD 08/10/17 Azithromycin (Azithromycin) 250 Mg Tab 250 MG PO DIRECTED for Infection, #6 TAB 0 Refills Take 2 tabs (500 mg) on day 1 then 1 tab daily x 4 days. Prov: Harika Yeh MD 08/10/17 Ipratropium-Albuterol Neb (Duoneb) 0.5-2.5 Mg/3 Ml Neb 1 NEBULE INH Q4HR NEB for SHORTNESS OF BREATH, #120 NEBULE 0 Refills Prov: Harika Yeh MD 08/10/17 Prednisone (Prednisone) 20 Mg Tab 20 MG PO BID for 5 Days, #10 TAB 0 Refills Prov: Harika Yeh MD 08/10/17 Disposition: 01 DISCHARGE HOME Condition: Stable Bairon Higgins Aug 10, 2017 13:00
--- NOTE | 2017-08-10 13:41 | RADRPT ---
EXAM DATE/TIME: 08/10/2017 13:12 [facility] COMPARISON: CHEST SINGLE AP, November 25, 2016, 16:36. INDICATIONS : Short of breath. MEDICAL HISTORY : Cardiovascular disease. Hypertension Congestive heart failure. SURGICAL HISTORY : None. ENCOUNTER: Initial ACUITY: 1 day PAIN SCORE: 0/10 LOCATION: Bilateral chest FINDINGS: A single view of the chest demonstrates minimal left basilar subsegmental atelectasis without evidenc e of mass, infiltrate or effusion. Mild cardiomegaly. The cardiomediastinal contours are unremarkabl e. Osseous structures are intact. CONCLUSION: Mild cardiomegaly with left basilar subsegmental atelectasis. Travis Pedraza MD on August 10, 2017 at 13:38 Board Certified Radiologist. This report was verified electronically.
[2017-08-10 13:51] VITALS: PULSE 78; RESP 24; O2SAT 100
[2017-08-10 14:04] LABS: AUTOMATED NEUTROPHIL # 2.7 TH/MM3 (1.8-7.7); BASOPHIL % 0.7 % (0.0-2.0); EOSINOPHIL # 0.1 TH/MM3 (0-0.4); HEMATOCRIT 39.8 % (35.0-46.0); HEMOGLOBIN 13.2 GM/DL (11.6-15.3); LYMPH % 38.9 % (9.0-44.0); LYMPHOCYTE # 2.2 TH/MM3 (1.0-4.8); MEAN CELL VOLUME 85.7 FL (80.0-100.0); MEAN CORPUSCULAR HEMOGLOBIN 28.3 PG (27.0-34.0); MEAN CORPUSCULAR HGB CONC 33.1 % (32.0-36.0); MONO % 11.8 % (0.0-8.0); MONOCYTE # 0.7 TH/MM3 (0-0.9); NEUT % 46.6 % (16.0-70.0); PLATELET COUNT 193 TH/MM3 (150-450); RED BLOOD COUNT 4.65 MIL/MM3 (4.00-5.30); RED CELL DISTRIBUTION WIDTH 13.3 % (11.6-17.2); WHITE BLOOD COUNT 5.7 TH/MM3 (4.0-11.0)
[2017-08-10 14:20] LABS: PROTHROMBIN TIME - PATIENT 10.6 SEC (9.8-11.6)
[2017-08-10 14:25] LABS: ALBUMIN 3.6 GM/DL (3.4-5.0); ALT (GPT) 31 U/L (10-53); AST (GOT) 40 U/L (15-37); BICARBONATE 27.9 MEQ/L (21.0-32.0); BLOOD UREA NITROGEN 20 MG/DL (7-18); CALCIUM 8.8 MG/DL (8.5-10.1); CHLORIDE 107 MEQ/L (98-107); CREATININE 1.09 MG/DL (0.50-1.00); GLOMERULAR FILTRATION RATE 57 ML/MIN (>89); GLUCOSE,RANDOM 109 MG/DL (74-106); SODIUM (NA) 143 MEQ/L (136-145)
[2017-08-10 14:36] LABS: ALKALINE PHOSPHATASE 80 U/L (45-117); TOTAL BILIRUBIN ADULT 0.8 MG/DL (0.2-1.0); TOTAL PROTEIN 8.4 GM/DL (6.4-8.2); TROPONIN I 0.03 NG/ML (0.02-0.05)
[2017-08-10 15:05] VITALS: BP 195/77; PULSE 76; RESP 22; O2SAT 97
[2017-08-10] MEDS ORDERED: PRED20 PO (15:18)
[2017-08-10] MEDS ORDERED: IPRASOL INH (15:18)
[2017-08-10] MEDS ORDERED: AZIT250T3 PO (15:18)
[2017-08-10] MEDS ORDERED: MICO2CRE34 TOPICAL (15:20)
--- NOTE | 2017-08-10 15:23 | PD ---
Physical Exam Narrative GENERAL: 86-year-old female in no apparent distress SKIN: Focused skin assessment warm/dry. HEAD: Atraumatic. Normocephalic. EYES: No injection or drainage. ENT: No nasal bleeding or discharge. Mucous membranes pink and moist. NECK: Trachea midline. CARDIOVASCULAR: Regular rate and rhythm. No murmur appreciated. RESPIRATORY: No accessory muscle use. Clear to auscultation. Breath sounds equal bilaterally. GASTROINTESTINAL: Abdomen soft, non-tender, nondistended. MUSCULOSKELETAL: No obvious deformities. No clubbing. No cyanosis. NEUROLOGICAL: Awake. Moves extremities. Normal speech. Data Data Last Documented VS Vital Signs Date Time Temp Pulse Resp B/P (MAP) Pulse Ox O2 Delivery O2 Flow Rate FiO2 08/10/17 15:05 76 22 195/77 (116) 97 08/10/17 13:51 Room Air 08/10/17 12:29 97.8 Orders Orders Electrocardiogram (08/10/17 12:43) Complete Blood Count With Diff (08/10/17 12:43) Comprehensive Metabolic Panel (08/10/17 12:43) Ckmb (Isoenzyme) Profile (08/10/17 12:43) Troponin I (08/10/17 12:43) B-Type Natriuretic Peptide (08/10/17 12:43) Prothrombin Time / Inr (Pt) (08/10/17 12:43) Act Partial Throm Time (Ptt) (08/10/17 12:43) Urinalysis - C+S If Indicated (08/10/17 12:43) Magnesium (Mg) (08/10/17 12:43) Thyroid Stimulating Hormone (08/10/17 12:43) Chest, Single Ap (08/10/17 12:43) Iv Access Insert/Monitor (08/10/17 12:43) Ecg Monitoring (08/10/17 12:43) Oximetry (08/10/17 12:43) Methylprednisolone So Succ Inj (Solumedr (08/10/17 12:45) Albuterol-Ipratropium Neb (Duoneb Neb) (08/10/17 12:45) Ed Discharge Order (08/10/17 15:20) Azithromycin Inj (Zithromax Inj) (08/10/17 15:30) Duoneb X 1 Single Dose (08/10/17 15:30) Labs Laboratory Tests Test 08/10/17 13:30 White Blood Count 5.7 TH/MM3 Red Blood Count 4.65 MIL/MM3 Hemoglobin 13.2 GM/DL Hematocrit 39.8 % Mean Corpuscular Volume 85.7 FL Mean Corpuscular Hemoglobin 28.3 PG Mean Corpuscular Hemoglobin Concent 33.1 % Red Cell Distribution Width 13.3 % Platelet Count 193 TH/MM3 Mean Platelet Volume 10.0 FL Neutrophils (%) (Auto) 46.6 % Lymphocytes (%) (Auto) 38.9 % Monocytes (%) (Auto) 11.8 % Eosinophils (%) (Auto) 2.0 % Basophils (%) (Auto) 0.7 % Neutrophils # (Auto) 2.7 TH/MM3 Lymphocytes # (Auto) 2.2 TH/MM3 Monocytes # (Auto) 0.7 TH/MM3 Eosinophils # (Auto) 0.1 TH/MM3 Basophils # (Auto) 0.0 TH/MM3 CBC Comment DIFF FINAL Differential Comment Prothrombin Time 10.6 SEC Prothromb Time International Ratio 1.0 RATIO Activated Partial Thromboplast Time 27.4 SEC Blood Urea Nitrogen 20 MG/DL Creatinine 1.09 MG/DL Random Glucose 109 MG/DL Total Protein 8.4 GM/DL Albumin 3.6 GM/DL Calcium Level 8.8 MG/DL Magnesium Level 2.0 MG/DL Alkaline Phosphatase 80 U/L Aspartate Amino Transf (AST/SGOT) 40 U/L Alanine Aminotransferase (ALT/SGPT) 31 U/L Total Bilirubin 0.8 MG/DL Sodium Level 143 MEQ/L Potassium Level 4.1 MEQ/L Chloride Level 107 MEQ/L Carbon Dioxide Level 27.9 MEQ/L Anion Gap 8 MEQ/L Estimat Glomerular Filtration Rate 57 ML/MIN Total Creatine Kinase 99 U/L Troponin I 0.03 NG/ML B-Type Natriuretic Peptide 109 PG/ML Thyroid Stimulating Hormone 3rd Gen 1.430 uIU/ML MDM Supervised Visit with SAUL: Yes Interpretation(s) CBC & BMP Diagram 08/10/17 13:30 Total Protein 8.4 H, Albumin 3.6, Calcium Level 8.8, Magnesium Level 2.0, Alkaline Phosphatase 80, Aspartate Amino Transf (AST/SGOT) 40 H, Alanine Aminotransferase (ALT/SGPT) 31, Total Bilirubin 0.8 Last 24 hours Impressions Chest X-Ray 08/10/17 1243 Signed Impressions: Service Date/Time: Thursday, August 10, 2017 13:12 - CONCLUSION: Mild cardiomegaly with left basilar subsegmental atelectasis. Travis Pedraza MD Narrative Course I, Dr. gill, have reviewed the advance practice practitioner's documentation and am in agreement, met with the patient face to face, made the diagnosis, and the medical decision making was done by me. *My assessment and Findings: 86-year-old female who presents with shortness of breath over the past couple of days. Lab work and x-ray without emergent findings. Likely mild COPD exacerbation. Daughter was offered observation but feels comfortable taking her home. will be Given return instructions Diagnosis Primary Impression: SOB (shortness of breath) Patient Instructions: General Instructions Additional Instruction: return as needed, follow with primary this week Med/Other Pt SpecificInfo: Prescription(s) given Scripts Miconazole Topical (Miconazole Topical) 2% Cream 1 APPLIC TOPICAL BID for 14 Days, GM 0 Refills Prov: Harika Gill MD 08/10/17 Azithromycin (Azithromycin) 250 Mg Tab 250 MG PO DIRECTED for Infection, #6 TAB 0 Refills Take 2 tabs (500 mg) on day 1 then 1 tab daily x 4 days. Prov: Harika Gill MD 08/10/17 Ipratropium-Albuterol Neb (Duoneb) 0.5-2.5 Mg/3 Ml Neb 1 NEBULE INH Q4HR NEB for SHORTNESS OF BREATH, #120 NEBULE 0 Refills Prov: Harika Gill MD 08/10/17 Prednisone (Prednisone) 20 Mg Tab 20 MG PO BID for 5 Days, #10 TAB 0 Refills Prov: Harika Gill MD 08/10/17 Disposition: 01 DISCHARGE HOME Condition: Stable Harika Gill MD Aug 10, 2017 15:23
[2017-08-10] MEDS ORDERED: AZITHROMYCIN INJ 500 MG in SODIUM CHLOR 0.9% 250 ML INJ 250 ML IV ONE (15:30)
[2017-08-10] MEDS ORDERED: RESP: ALBUTEROL 2.5 MG/IPRATROPIUM 0.5 MG NEB (SCH) INH ONE (15:30)
[2017-08-10 17:01] VITALS: BP 186/79
--- NOTE | 2017-08-11 23:12 | EKG ---
Date Performed: 08/10/2017 Time Performed: 12:55:32 PTAGE: 86 years EKG: Sinus rhythm WITH OCCASIONAL SUPRAVENTRICULAR PREMATURE COMPLEXES INCOMPLETE RIGHT BUNDLE BRANCH BLOCK MODERATE V OLTAGE CRITERIA FOR LVH, CONSIDER NORMAL VARIANT NONSPECIFIC T-WAVE ABNORMALITY BORDERLINE ECG PREVIOUS TRACING : 10/21/2016 10.03 Since the previous tracing, no significant change noted DOCTOR: Ashley Christiansen Interpretating Date/Time 08/11/2017 23:10:46
== END 2017-08-10 17:06 | disposition home or self-care (01) ==
LOC: NEPC 12:26
DX: J44.1 Chronic obstructive pulmonary disease with (acute) exacerbation (principal); L30.9 Dermatitis, unspecified; I11.0 Hypertensive heart disease with heart failure; I50.9 Heart failure, unspecified
CPT/HCPCS: 71045; 80053; 82550; 83735; 83880; 84443; 84484; 85025; 85610; 85730; 93005; 94640; 94664; 96374; 99285; J0456; J2930; J7050

== ENCOUNTER 2017-08-27 09:24 | Observation (INO) | payer MEDICARE, MEDICAID ==
[~2017-08-27] VITALS: Ht 165.1 cm; Wt 108.0 kg
[2017-08-27] VITALS (8 sets, daily range): BP systolic 113–228; BP diastolic 58–91; PULSE 72–91; RESP 16–24; TEMP 98–98.2; O2SAT 96–100
[~2017-08-27 09:24] MED LIST changes: +AZIT250T3 PO; +IPRASOL INH; +MICO2CRE34 TOPICAL; +PRED20 PO
[2017-08-27] MEDS ORDERED: IOHEXOL 350 MG/ML 10 ML VIAL (for RAD DIAG) IVCONTRAST ONE (09:25)
[2017-08-27] MEDS ORDERED: SODIUM CHLORIDE 0.9% FLUSH 10 ML FLUSH IVF PRN (10:15)
--- NOTE | 2017-08-27 10:21 | PD ---
HPI Chief Complaint: Respiratory Symptoms Time Seen by Provider: 10:01 Travel History International Travel<30 days: No Contact w/Intl Traveler<30days: No Traveled to known affect area: No History of Present Illness HPI Patient is a 87-year-old female with history of hypertension as well as CHF who returns to emergency room with complaints of shortness of breath. Reports shortness of breath at rest as well as on exertion. Reports that nothing really makes her shortness of breath better. Patient presents the emergency room with her daughter who was at bedside. Patient reports that she has not been feeling well since August 10, 2017, she was seen at that time in the emergency room and was diagnosed with COPD exacerbation. Patient reports that prior to that, she was feeling short of breath for the past few days. Patient reports that she has been using her breathing treatments, reports that she has not been feeling any better with the neb treatments. Patient reports that she has had a productive cough since the middle of July, reports that she may have had a subjective fever 2 days ago. Patient denies any chest pain at this time, patient with no other complaints at this time. PFSH Past Medical History Hx Anticoagulant Therapy: Yes Arthritis: Yes Asthma: No Autoimmune Disease: No Blood Disorders: No Anxiety: Yes Depression: Yes Heart Rhythm Problems: No Cancer: No Cardiovascular Problems: Yes High Cholesterol: No Chemotherapy: Yes Chest Pain: No Congestive Heart Failure: Yes COPD: No Cerebrovascular Accident: Yes Diabetes: Yes (Borderline) Patient Takes Glucophage: No Diminished Hearing: Yes (HEARING AIDS; [place]) Endocrine: No Gastrointestinal Disorders: No Genitourinary: Yes (history of uti) Hypertension: Yes Immune Disorder: No Implanted Vascular Access Dvce: No Musculoskeletal: Yes Neurologic: No Psychiatric: Yes Reproductive: No Respiratory: Yes Immunizations Current: Yes Myocardial Infarction: Yes Sleep Apnea: No Thyroid Disease: No PNEUMOCCOCAL Vaccine (Year): 3 ?: Not Menopausal: Yes : 11 Para: 11 Past Surgical History Joint Replacement: Yes (bilateral knees) Pacemaker: No Other Surgery: Yes Social History Alcohol Use: No Tobacco Use: No Substance Use: No Allergies-Medications (Allergen,Severity, Reaction): Coded Allergies: *MDRO Multi-Drug Resistant Organism (Verified Adverse Reaction, Unknown, MRSA, 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 Reported Meds & Prescriptions Reported Meds & Active Scripts Active Duoneb (Ipratropium-Albuterol Neb) 0.5-2.5 Mg/3 Ml Neb 1 Nebule INH Q4HR NEB Reported Losartan (Losartan Potassium) 50 Mg Tab 50 Mg PO BID Amlodipine (Amlodipine Besylate) 10 Mg Tab 10 Mg PO DAILY Furosemide 40 Mg Tab 40 Mg PO DAILY Buspirone (Buspirone HCl) 15 Mg Tab 15 Mg PO TID Trazodone (Trazodone HCl) 50 Mg Tab 50 Mg PO HS Clonidine (Clonidine HCl) 0.1 Mg Tab 0.1 Mg PO BID Clopidogrel (Clopidogrel Bisulfate) 75 Mg Tab 75 Mg PO DAILY Donepezil 5 Mg Tab 5 Mg PO HS Aripiprazole 10 Mg Tab 10 Mg PO DAILY Review of Systems General / Constitutional: No: Fever Eyes: No: Visual changes HENT: No: Headaches Cardiovascular: No: Chest Pain or Discomfort, Palpitations, Irregular Rhythm, Tachycardia Respiratory: Positive: Cough, Shortness of Breath, Wheezing Gastrointestinal: No: Abdominal Pain Genitourinary: No: Dysuria Musculoskeletal: No: Pain Skin: No Rash Neurologic: No: Weakness Psychiatric: No: Depression Endocrine: No: Polydipsia Hematologic/Lymphatic: No: Easy Bruising Physical Exam Narrative GENERAL: No acute distress, nontoxic SKIN: Focused skin assessment warm/dry. HEAD: Atraumatic. Normocephalic. EYES: Pupils equal and round. No scleral icterus. No injection or drainage. ENT: No nasal bleeding or discharge. Mucous membranes pink and moist. NECK: Trachea midline. No JVD. CARDIOVASCULAR: Regular rate and rhythm. No murmur appreciated. RESPIRATORY: No accessory muscle use. Rales at lung bases. Breath sounds equal bilaterally. GASTROINTESTINAL: Abdomen soft, non-tender, nondistended. Hepatic and splenic margins not palpable. MUSCULOSKELETAL: No obvious deformities. No clubbing. No cyanosis. No edema. NEUROLOGICAL: Awake and alert. No obvious cranial nerve deficits. Motor grossly within normal limits. Normal speech. PSYCHIATRIC: Appropriate mood and affect; insight and judgment normal. Data Data Last Documented VS Vital Signs Date Time Temp Pulse Resp B/P (MAP) Pulse Ox O2 Delivery O2 Flow Rate FiO2 08/27/17 13:51 90 151/75 (100) 08/27/17 12:27 17 100 Room Air 08/27/17 09:28 98.1 Orders Orders Complete Blood Count With Diff (08/27/17 10:06) Comprehensive Metabolic Panel (08/27/17 10:06) Basic Metabolic Panel (Bmp) (08/27/17 10:06) B-Type Natriuretic Peptide (08/27/17 10:06) Act Partial Throm Time (Ptt) (08/27/17 10:06) Prothrombin Time / Inr (Pt) (08/27/17 10:06) Ckmb (Isoenzyme) Profile (08/27/17 10:06) Troponin I (08/27/17 10:06) Urinalysis - C+S If Indicated (08/27/17 10:06) Iv Access Insert/Monitor (08/27/17 10:06) Electrocardiogram (08/27/17 10:06) Ecg Monitoring (08/27/17 10:06) Oximetry (08/27/17 10:06) Chest, Single Ap (08/27/17 10:06) Sodium Chloride 0.9% Flush (Ns Flush) (08/27/17 10:15) CKMB (08/27/17 10:09) CKMB% (08/27/17 10:09) Ct Pulmonary Angiogram (08/27/17 11:13) Hydralazine Inj (Apresoline Inj) (08/27/17 11:30) Iohexol 350 Inj (Omnipaque 350 Inj) (08/27/17 09:25) Aspirin (Aspirin) (08/27/17 15:30) Labs Laboratory Tests Test 08/27/17 10:09 White Blood Count 6.0 TH/MM3 Red Blood Count 4.62 MIL/MM3 Hemoglobin 13.0 GM/DL Hematocrit 39.4 % Mean Corpuscular Volume 85.2 FL Mean Corpuscular Hemoglobin 28.1 PG Mean Corpuscular Hemoglobin Concent 33.0 % Red Cell Distribution Width 13.2 % Platelet Count 183 TH/MM3 Mean Platelet Volume 9.0 FL Neutrophils (%) (Auto) 53.9 % Lymphocytes (%) (Auto) 33.2 % Monocytes (%) (Auto) 9.9 % Eosinophils (%) (Auto) 2.1 % Basophils (%) (Auto) 0.9 % Neutrophils # (Auto) 3.2 TH/MM3 Lymphocytes # (Auto) 2.0 TH/MM3 Monocytes # (Auto) 0.6 TH/MM3 Eosinophils # (Auto) 0.1 TH/MM3 Basophils # (Auto) 0.1 TH/MM3 CBC Comment DIFF FINAL Differential Comment Prothrombin Time 10.4 SEC Prothromb Time International Ratio 1.0 RATIO Activated Partial Thromboplast Time 26.4 SEC Blood Urea Nitrogen 13 MG/DL Creatinine 0.96 MG/DL Random Glucose 100 MG/DL Total Protein 7.7 GM/DL Albumin 3.3 GM/DL Calcium Level 9.2 MG/DL Alkaline Phosphatase 75 U/L Aspartate Amino Transf (AST/SGOT) 27 U/L Alanine Aminotransferase (ALT/SGPT) 20 U/L Total Bilirubin 0.8 MG/DL Sodium Level 142 MEQ/L Potassium Level 4.0 MEQ/L Chloride Level 106 MEQ/L Carbon Dioxide Level 23.9 MEQ/L Anion Gap 12 MEQ/L Estimat Glomerular Filtration Rate 66 ML/MIN Total Creatine Kinase 105 U/L Creatine Kinase MB 1.9 NG/ML Troponin I 0.06 NG/ML B-Type Natriuretic Peptide 145 PG/ML MDM Medical Decision Making Medical Screen Exam Complete: Yes Emergency Medical Condition: Yes Medical Record Reviewed: Yes Interpretation(s) EKG at 1023: NSR at 82bpm, qt/qtc: 401/439, nonspecific t wave changes Vital Signs Date Time Temp Pulse Resp B/P (MAP) Pulse Ox O2 Delivery O2 Flow Rate FiO2 08/27/17 09:57 82 22 223/91 (135) 99 Room Air 08/27/17 09:43 24 99 Room Air 08/27/17 09:28 98.1 87 24 179/66 (103) 100 Differential Diagnosis CHF exacerbation, ACS, arrhythmia, COPD, PE, pneumothorax, pneumonia Narrative Course 87-year-old female with history of CHF, hypertension, presents the emergency room with complaints of continued shortness of breath. She was seen in the hospital on August 10, 2016 as she was having shortness of breath for a few days , reports that symptoms have not improved on neb treatments. She did take full course of Z-Paul, steroids, reports no relief with her albuterol treatments. During the course of the patients emergency department visit, the patients history, examination, and differential diagnosis were reviewed with the patient. The patient was placed on a personnel monitor with oximetry and frequent blood pressure monitoring. The patient had an IV access obtained and blood work sent for analysis. The patients laboratory studies were reviewed and remarkable for Laboratory Tests Test 08/27/17 10:09 White Blood Count 6.0 TH/MM3 (4.0-11.0) Red Blood Count 4.62 MIL/MM3 (4.00-5.30) Hemoglobin 13.0 GM/DL (11.6-15.3) Hematocrit 39.4 % (35.0-46.0) Mean Corpuscular Volume 85.2 FL (80.0-100.0) Mean Corpuscular Hemoglobin 28.1 PG (27.0-34.0) Mean Corpuscular Hemoglobin Concent 33.0 % (32.0-36.0) Red Cell Distribution Width 13.2 % (11.6-17.2) Platelet Count 183 TH/MM3 (150-450) Mean Platelet Volume 9.0 FL (7.0-11.0) Neutrophils (%) (Auto) 53.9 % (16.0-70.0) Lymphocytes (%) (Auto) 33.2 % (9.0-44.0) Monocytes (%) (Auto) 9.9 % (0.0-8.0) Eosinophils (%) (Auto) 2.1 % (0.0-4.0) Basophils (%) (Auto) 0.9 % (0.0-2.0) Neutrophils # (Auto) 3.2 TH/MM3 (1.8-7.7) Lymphocytes # (Auto) 2.0 TH/MM3 (1.0-4.8) Monocytes # (Auto) 0.6 TH/MM3 (0-0.9) Eosinophils # (Auto) 0.1 TH/MM3 (0-0.4) Basophils # (Auto) 0.1 TH/MM3 (0-0.2) CBC Comment DIFF FINAL Differential Comment Prothrombin Time 10.4 SEC (9.8-11.6) Prothromb Time International Ratio 1.0 RATIO Activated Partial Thromboplast Time 26.4 SEC (24.3-30.1) Blood Urea Nitrogen 13 MG/DL (7-18) Creatinine 0.96 MG/DL (0.50-1.00) Random Glucose 100 MG/DL (74-106) Total Protein 7.7 GM/DL (6.4-8.2) Albumin 3.3 GM/DL (3.4-5.0) Calcium Level 9.2 MG/DL (8.5-10.1) Alkaline Phosphatase 75 U/L (45-117) Aspartate Amino Transf (AST/SGOT) 27 U/L (15-37) Alanine Aminotransferase (ALT/SGPT) 20 U/L (10-53) Total Bilirubin 0.8 MG/DL (0.2-1.0) Sodium Level 142 MEQ/L (136-145) Potassium Level 4.0 MEQ/L (3.5-5.1) Chloride Level 106 MEQ/L (98-107) Carbon Dioxide Level 23.9 MEQ/L (21.0-32.0) Anion Gap 12 MEQ/L (5-15) Estimat Glomerular Filtration Rate 66 ML/MIN (>89) Total Creatine Kinase 105 U/L (26-192) Creatine Kinase MB 1.9 NG/ML (0.5-3.6) Troponin I 0.06 NG/ML (0.02-0.05) B-Type Natriuretic Peptide 145 PG/ML (0-100) Radiology studies were reviewed and remarkable for Last Impressions Chest X-Ray 08/27/17 1006 Signed Impressions: Service Date/Time: Sunday, August 27, 2017 10:06 - CONCLUSION: 1. Stable minimal left lower lung zone airspace disease, presumably atelectasis. 2. No acute abnormality or interval change. Tushar Vee MD Patient reevaluated, patient reports that she is not feeling any better, patient has a mildly elevated troponin 0.06 -reports that she continues to feel shortness of breath with chest pain as chest pain is exacerbated by cough. CTA to rule out PE was ordered given her ongoing symptoms. Patient's troponin could be mildly elevated due to hypertension, patient's current blood pressure was 223/81, repeat BP now 228/84, IV hydralazine was ordered. Patient does have history of hypertension, she did take her morning losartan, amlodipine as well as clonidine this morning as per patient's daughter. Last Impressions CT Angiography 08/27/17 1113 Signed Impressions: Service Date/Time: Sunday, August 27, 2017 14:02 - CONCLUSION: 1. No pulmonary embolus identified. The exam is of moderate diagnostic quality. There is visualization out to the second order branches. 2. Advanced atherosclerotic plaquing of the coronary arteries. 3. Extensive calcification of the aortic annulus and valvular leaflets. Johny Franklin MD Chest X-Ray 08/27/17 1006 Signed Impressions: Service Date/Time: Sunday, August 27, 2017 10:06 - CONCLUSION: 1. Stable minimal left lower lung zone airspace disease, presumably atelectasis. 2. No acute abnormality or interval change. Tushar Vee MD Blood pressure improved after IV hydralazine, patient does have a mildly elevated troponin which I assume may be from accelerated hypertension, plan for patient to be observed for this for serial troponins. case reviewed with Dr. El who will admit patient for blood pressure monitoring and for serial troponins as patient's bp was 223/91 and then went down to 195/81 after IV hydralazine Diagnosis Primary Impression: SOB (shortness of breath) Additional Impression: Elevated troponin Admitting Information Admitting Physician Requests: Observation Loyda Yang DO August 27, 2017 10:21
[2017-08-27 10:27] LABS: AUTOMATED NEUTROPHIL # 3.2 TH/MM3 (1.8-7.7); BASOPHIL # 0.1 TH/MM3 (0-0.2); BASOPHIL % 0.9 % (0.0-2.0); EOSINOPHIL # 0.1 TH/MM3 (0-0.4); EOSINOPHIL % 2.1 % (0.0-4.0); HEMATOCRIT 39.4 % (35.0-46.0); LYMPH % 33.2 % (9.0-44.0); MEAN CELL VOLUME 85.2 FL (80.0-100.0); MEAN CORPUSCULAR HEMOGLOBIN 28.1 PG (27.0-34.0); MONO % 9.9 % (0.0-8.0); MONOCYTE # 0.6 TH/MM3 (0-0.9); NEUT % 53.9 % (16.0-70.0); PLATELET COUNT 183 TH/MM3 (150-450); RED BLOOD COUNT 4.62 MIL/MM3 (4.00-5.30); RED CELL DISTRIBUTION WIDTH 13.2 % (11.6-17.2)
[2017-08-27 10:34] LABS: PROTHROMBIN TIME - PATIENT 10.4 SEC (9.8-11.6)
--- NOTE | 2017-08-27 10:37 | RADRPT ---
EXAM DATE/TIME: 08/27/2017 10:06 [facility] COMPARISON: CHEST SINGLE AP, August 10, 2017, 13:12. INDICATIONS : Short of breath, fever and cough. MEDICAL HISTORY : Congestive heart failure. Cardiovascular disease. SURGICAL HISTORY : None. ENCOUNTER: Initial ACUITY: 1 day PAIN SCORE: 0/10 LOCATION: Bilateral chest FINDINGS: Persistent mild left lower lung zone airspace disease. No new focal pleural or parenchymal opacities. Cardiomediastinal contours are stable. Remainder of exam is unchanged. CONCLUSION: 1. Stable minimal left lower lung zone airspace disease, presumably atelectasis. 2. No acute abnormality or interval change. Tushar Vee MD on August 27, 2017 at 10:33 Board Certified Radiologist. This report was verified electronically.
[2017-08-27 10:46] LABS: ALT (GPT) 20 U/L (10-53)
[2017-08-27 10:48] LABS: ALBUMIN 3.3 GM/DL (3.4-5.0); AST (GOT) 27 U/L (15-37); BICARBONATE 23.9 MEQ/L (21.0-32.0); BLOOD UREA NITROGEN 13 MG/DL (7-18); CALCIUM 9.2 MG/DL (8.5-10.1); CHLORIDE 106 MEQ/L (98-107); CREATININE 0.96 MG/DL (0.50-1.00); GLOMERULAR FILTRATION RATE 66 ML/MIN (>89); GLUCOSE,RANDOM 100 MG/DL (74-106); SODIUM (NA) 142 MEQ/L (136-145)
[2017-08-27 10:50] LABS: ALKALINE PHOSPHATASE 75 U/L (45-117); TOTAL BILIRUBIN ADULT 0.8 MG/DL (0.2-1.0); TOTAL PROTEIN 7.7 GM/DL (6.4-8.2); TROPONIN I 0.06 NG/ML (0.02-0.05)
[2017-08-27] MEDS ORDERED: hydrALAZINE HCL 20 MG/ML VIAL IV PUSH ONE (11:30)
--- NOTE | 2017-08-27 14:52 | RADRPT ---
EXAM DATE/TIME: 08/27/2017 14:02 [facility] COMPARISON: CT BRAIN W/O CONTRAST, November 25, 2016, 16:17. INDICATIONS : Rattling in breathing with sob and nausea . IV CONTRAST: 75 cc Omnipaque 350 (iohexol) IV RADIATION DOSE: 22.73 CTDIvol (mGy) MEDICAL HISTORY : Hypertension. Diabetes mellitus type 2. Cerebrovascular disease. SURGICAL HISTORY : None. ENCOUNTER: Initial ACUITY: 1 day PAIN SCALE: 7/10 LOCATION: Bilateral TECHNIQUE: Volumetric scanning of the chest was performed using a pulmonary embolism protocol MIP images were re constructed. Using automated exposure control and adjustment of the mA and/or kV according to patien t size, radiation dose was kept as low as reasonably achievable to obtain optimal diagnostic quality images. DICOM format image data is available electronically for review and comparison. Follow-up recommendations for detected pulmonary nodules are based at a minimum on nodule size and pa tient risk factors according to Fleischner Society Guidelines. FINDINGS: The examination is of adequate diagnostic quality. There is no large or central pulmonary embolus naomie ntified. The distal third order branches are not well visualized. The heart is normal in size. There is advanced atherosclerotic plaquing in the coronary arteries. There is extensive calcification of th e aortic annulus and valve leaflets. There is no hilar or mediastinal adenopathy. No axillary adenopathy is visualized. Imaging through the pulmonary parenchyma demonstrates a small emphysematous bleb at the left lung bas e. The lungs are otherwise clear. There are degenerative changes throughout the spine. CONCLUSION: 1. No pulmonary embolus identified. The exam is of moderate diagnostic quality. There is visualizatio n out to the second order branches. 2. Advanced atherosclerotic plaquing of the coronary arteries. 3. Extensive calcification of the aortic annulus and valvular leaflets. Johny Franklin MD on August 27, 2017 at 14:48 Board Certified Radiologist. This report was verified electronically.
[2017-08-27] MEDS ORDERED: ASPIRIN 325 MG TAB PO ONE (15:30)
[2017-08-27] MEDS ORDERED: SODIUM CHLORIDE 0.9% FLUSH 10 ML FLUSH IV FLUSH PRN (16:00)
[2017-08-27] MEDS ORDERED: RESP: ALBUTEROL 2.5 MG/IPRATROPIUM 0.5 MG NEB (PRN) NEB (16:00)
[2017-08-27] MEDS ORDERED: ONDANSETRON HCL 4 MG/2 ML VIAL IVP PRN (16:00)
[2017-08-27] MEDS ORDERED: NALOXONE HCL 0.4 MG/ML AMP IV PUSH PRN (16:00)
[2017-08-27] MEDS ORDERED: MAGNESIUM HYDROXIDE SUSP 30 ML CUP PO PRN (16:00)
[2017-08-27] MEDS ORDERED: ACETAMINOPHEN 325 MG TAB PO PRN ×2 (16:00)
--- NOTE | 2017-08-27 16:01 | HHI.HP ---
[facility] Jose Cardoza MD Admission Diagnosis Accelerated hypertension, SOB, Diagnoses: (1) Acute on chronic diastolic CHF (congestive heart failure) (2) Hypertension, accelerated (3) Elevated troponin Chief Complaint: Shortness of breath Travel History International Travel<30 Days: No Contact w/Intl Traveler <30 Da: No Traveled to Known Affected Are: No History of Present Illness 87-year-old female with past medical history of diastolic CHF, hypertension, dementia was brought to the ED by family member for evaluation of worsening symptom of shortness of breath at rest associated with dry cough and chest pain , as well as generalized weakness. Per daughter's account, her symptoms has gotten worse over the past 24-48 hours. She also noted vision to have slight worsening of lower extremity swelling, worse on the right than the left. Patient on admission was found to have accelerating hypertension which improved with treatment. Normal lab include mildly elevated BNP as well as troponin I. Patient currently denies any GI bleed. There is no report of nausea vomiting p.o. intake. She is alert and responding to my question somehow for weak voice. Review of Systems Except as stated in HPI: all other systems reviewed are Neg Past Family Social History Past Medical History Arthritis: Yes Anxiety: Yes Depression: Yes Cardiovascular Problems: Yes Chemotherapy: Yes Congestive Heart Failure: Yes Cerebrovascular Accident: Yes Diminished Hearing: Yes (HEARING AIDS; CACHIL DEHE) Hypertension: Yes Myocardial Infarction: Yes Past Surgical History Joint Replacement: Yes (bilateral knees) Other Surgery: Yes Reported Medications Losartan (Losartan Potassium) 50 Mg Tab 50 Mg PO BID Amlodipine (Amlodipine Besylate) 10 Mg Tab 10 Mg PO DAILY Furosemide 40 Mg Tab 40 Mg PO DAILY Buspirone (Buspirone HCl) 15 Mg Tab 15 Mg PO TID Trazodone (Trazodone HCl) 50 Mg Tab 50 Mg PO HS Clonidine (Clonidine HCl) 0.1 Mg Tab 0.1 Mg PO BID Clopidogrel (Clopidogrel Bisulfate) 75 Mg Tab 75 Mg PO DAILY Donepezil 5 Mg Tab 5 Mg PO HS Aripiprazole 10 Mg Tab 10 Mg PO DAILY Allergies: Coded Allergies: *MDRO Multi-Drug Resistant Organism (Verified Adverse Reaction, Unknown, MRSA, 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 SKIN: No rashes, ecchymoses or lesions. Cool and dry. HEAD: Atraumatic. Normocephalic. No temporal or scalp tenderness. EYES: Pupils equal round and reactive. Extraocular motions intact. No scleral icterus. No injection or drainage. ENT: Nose without bleeding, purulent drainage or septal hematoma. Throat without erythema, tonsillar hypertrophy or exudate. Uvula midline. Airway patent. NECK: Trachea midline. No JVD or lymphadenopathy. Supple, nontender, no meningeal signs. CARDIOVASCULAR: Regular rate and rhythm without murmurs, gallops, or rubs. RESPIRATORY: Clear to auscultation. Breath sounds decrease bilaterally. No wheezes, rales, or rhonchi. GASTROINTESTINAL: Abdomen soft, non-tender, nondistended. No hepato-splenomegaly , or palpable masses. No guarding. MUSCULOSKELETAL: Extremities without clubbing, cyanosis; +1 edema BLE R>L. No joint tenderness, effusion, or edema noted. No calf tenderness. Negative Homans sign bilaterally. NEUROLOGICAL: Awake and alert. Cranial nerves II through XII intact. Motor and sensory grossly within normal limits. Five out of 5 muscle strength in all muscle groups. Normal speech. Laboratory Laboratory Tests Test 08/27/17 10:09 White Blood Count 6.0 Red Blood Count 4.62 Hemoglobin 13.0 Hematocrit 39.4 Mean Corpuscular Volume 85.2 Mean Corpuscular Hemoglobin 28.1 Mean Corpuscular Hemoglobin Concent 33.0 Red Cell Distribution Width 13.2 Platelet Count 183 Mean Platelet Volume 9.0 Neutrophils (%) (Auto) 53.9 Lymphocytes (%) (Auto) 33.2 Monocytes (%) (Auto) 9.9 Eosinophils (%) (Auto) 2.1 Basophils (%) (Auto) 0.9 Neutrophils # (Auto) 3.2 Lymphocytes # (Auto) 2.0 Monocytes # (Auto) 0.6 Eosinophils # (Auto) 0.1 Basophils # (Auto) 0.1 CBC Comment DIFF FINAL Differential Comment Prothrombin Time 10.4 Prothromb Time International Ratio 1.0 Activated Partial Thromboplast Time 26.4 Blood Urea Nitrogen 13 Creatinine 0.96 Random Glucose 100 Total Protein 7.7 Albumin 3.3 Calcium Level 9.2 Alkaline Phosphatase 75 Aspartate Amino Transf (AST/SGOT) 27 Alanine Aminotransferase (ALT/SGPT) 20 Total Bilirubin 0.8 Sodium Level 142 Potassium Level 4.0 Chloride Level 106 Carbon Dioxide Level 23.9 Anion Gap 12 Estimat Glomerular Filtration Rate 66 Total Creatine Kinase 105 Creatine Kinase MB 1.9 Troponin I 0.06 B-Type Natriuretic Peptide 145 Result Diagram: 08/27/17 1009 08/27/17 [address] Angiography 08/27/17 1113 Signed Impressions: Service Date/Time: Sunday, August 27, 2017 14:02 - CONCLUSION: 1. No pulmonary embolus identified. The exam is of moderate diagnostic quality. There is visualization out to the second order branches. 2. Advanced atherosclerotic plaquing of the coronary arteries. 3. Extensive calcification of the aortic annulus and valvular leaflets. Johny Franklin MD Chest X-Ray 08/27/17 1006 Signed Impressions: Service Date/Time: Sunday, August 27, 2017 10:06 - CONCLUSION: 1. Stable minimal left lower lung zone airspace disease, presumably atelectasis. 2. No acute abnormality or interval change. Tushar Vee MD Septic Shock Reassessment Septic shock perfusion: reassessment completed Caprini VTE Risk Assessment Caprini VTE Risk Assessment: Mod/High Risk (score >= 2) Caprini Risk Assessment Model Point Value = 1 Point Value = 2 Point Value = 3 Point Value = 5 Age 41-60 Minor surgery BMI > 25 kg/m2 Swollen legs Varicose veins or History of unexplained or recurrent spontaneous Oral contraceptives or hormone replacement Sepsis (< 1 month) Serious lung disease, including pneumonia (< 1 month) Abnormal pulmonary function Acute myocardial infarction Congestive heart failure (< 1 month) History of inflammatory bowel disease Medical patient at bed rest Age 61-74 Arthroscopic surgery Major open surgery (> 45 min) Laparoscopic surgery (> 45 min) Malignancy Confined to bed (> 72 hours) Immobilizing plaster cast Central venous access Age >= 75 History of VTE Family history of VTE Factor V Leiden Prothrombin [id number] Lupus anticoagulant Anticardiolipin antibodies Elevated serum homocysteine Heparin-induced thrombocytopenia Other congenital or acquired thrombophilia Stroke (< 1 month) Elective arthroplasty Hip, pelvis, or leg fracture Acute spinal cord injury (< 1 month) Prophylaxis Regimen Total Risk Factor Score Risk Level Prophylaxis Regimen 0-1 Low Early ambulation 2 Moderate Order ONE of the following: *Sequential Compression Device (SCD) *Heparin 5000 units SQ BID 3-4 Higher Order ONE of the following medications: *Heparin 5000 units SQ TID *Enoxaparin/Lovenox 40 mg SQ daily (WT < 150 kg, CrCl > 30 mL/min) *Enoxaparin/Lovenox 30 mg SQ daily (WT < 150 kg, CrCl > 10-29 mL/min) *Enoxaparin/Lovenox 30 mg SQ BID (WT < 150 kg, CrCl > 30 mL/min) AND/OR *Sequential Compression Device (SCD) 5 or more Highest Order ONE of the following medications: *Heparin 5000 units SQ TID (Preferred with Epidurals) *Enoxaparin/Lovenox 40 mg SQ daily (WT < 150 kg, CrCl > 30 mL/min) *Enoxaparin/Lovenox 30 mg SQ daily (WT < 150 kg, CrCl > 10-29 mL/min) *Enoxaparin/Lovenox 30 mg SQ BID (WT < 150 kg, CrCl > 30 mL/min) AND *Sequential Compression Device (SCD) Assessment and Plan Problem List: (1) Acute on chronic diastolic CHF (congestive heart failure) ICD Code: I50.33 - Acute on chronic diastolic (congestive) heart failure (2) Hypertension, accelerated ICD Code: I10 - Essential (primary) hypertension (3) Elevated troponin ICD Code: R74.8 - Abnormal levels of other serum enzymes Status: Acute Assessment and Plan 87-year-old female with Acute on chronic diastolic CHF BNP 145 Chest x-ray noted and reviewed without any evidence of mild congestion however will treat patient with Lasix IV 20 mg every 12 hours. She is currently on 40 mg daily at home CTA noted and reviewed without any PE Last EF 55-60% on October 21, 2016, will check 2D echo Rule out ACS per protocol with serial cardiac enzymes and EKGs Dyspnea Multifactorial, likely secondary to CHF exacerbation versus accelerated hypertension CTA noted the review without any PE Chest x-ray noted and reviewed by me without any cardiopulmonary disease Accelerated hypertension Responded well to treatments in ED Resume outpatient medications including losartan, amlodipine, clonidine 2D echo pending ACS ruled out per protocol with serial cardiac enzyme and EKGs Elevated troponin I Likely secondary to accelerated hypertension versus CHF exacerbations Although unlikely ACS, however will rule out the protocol with serial cardiac enzymes and EKGs Dementia Resume home medications. Coronary artery disease Resume Plavix. DVT prophylaxis: SCDs. Code Status Full code Discussed Condition With Patient, daughter, ED physician Travis Carter MD August 27, 2017 16:01
[2017-08-27] MEDS ORDERED: cloNIDine HCL 0.2 MG TAB PO PRN (16:45)
[2017-08-27 17:31] LABS: TROPONIN I 0.08 NG/ML (0.02-0.05)
[2017-08-27] MEDS: busPIRone HCL 5 MG TAB PO SCH (17:34)
[2017-08-27] MEDS: FUROSEMIDE 20 MG/2 ML VIAL IV PUSH SCH (17:34)
[2017-08-27] MEDS: traZODone HCL 50 MG TAB PO SCH (20:56)
[2017-08-27] MEDS: DONEPEZIL HCL 5 MG TAB PO SCH (20:56)
[2017-08-27] MEDS: cloNIDine HCL 0.1 MG TAB PO SCH (20:56)
[2017-08-27] MEDS: LOSARTAN 50 MG TAB PO SCH (20:56)
[2017-08-27] MEDS: SODIUM CHLORIDE 0.9% FLUSH 10 ML FLUSH IV FLUSH SCH (20:57)
--- NOTE | 2017-08-27 21:12 | EKG ---
Date Performed: 08/27/2017 Time Performed: 10:23:57 PTAGE: 87 years EKG: Sinus rhythm WITH FREQUENT ECTOPIC PREMATURE COMPLEXES NONSPECIFIC T-WAVE ABNORMALITY ABNORMAL RHYTHM ECG Since t he PREVIOUS TRACING , no significant change noted PREVIOUS TRACIN08/10/2017 12.55 DOCTOR: Sandy Escobar Interpretating Date/Time 08/27/2017 16:54:33
[2017-08-28 00:21] VITALS: BP 108/55; PULSE 58; RESP 16; TEMP 97.9; O2SAT 98
[2017-08-28 00:29] LABS: TROPONIN I 0.08 NG/ML (0.02-0.05)
[2017-08-28 04:05] VITALS: BP 128/60; PULSE 88; RESP 16; TEMP 97.4; O2SAT 100
[2017-08-28 07:39] VITALS: BP 111/56; PULSE 58; RESP 16; TEMP 98.1; O2SAT 98
[2017-08-28 07:55] LABS: AUTOMATED NEUTROPHIL # 2.8 TH/MM3 (1.8-7.7); BASOPHIL % 0.6 % (0.0-2.0); EOSINOPHIL # 0.1 TH/MM3 (0-0.4); EOSINOPHIL % 2.6 % (0.0-4.0); HEMATOCRIT 38.7 % (35.0-46.0); LYMPH % 36.9 % (9.0-44.0); LYMPHOCYTE # 2.1 TH/MM3 (1.0-4.8); MEAN CELL VOLUME 84.4 FL (80.0-100.0); MEAN CORPUSCULAR HEMOGLOBIN 28.2 PG (27.0-34.0); MEAN CORPUSCULAR HGB CONC 33.4 % (32.0-36.0); MEAN PLATELET VOLUME 8.9 FL (7.0-11.0); MONO % 9.8 % (0.0-8.0); MONOCYTE # 0.6 TH/MM3 (0-0.9); NEUT % 50.1 % (16.0-70.0); PLATELET COUNT 183 TH/MM3 (150-450); RED BLOOD COUNT 4.59 MIL/MM3 (4.00-5.30); RED CELL DISTRIBUTION WIDTH 13.3 % (11.6-17.2); WHITE BLOOD COUNT 5.6 TH/MM3 (4.0-11.0)
[2017-08-28 08:26] LABS: ALBUMIN 3.1 GM/DL (3.4-5.0); AST (GOT) 20 U/L (15-37); BICARBONATE 26.5 MEQ/L (21.0-32.0); BLOOD UREA NITROGEN 20 MG/DL (7-18); CALCIUM 9.2 MG/DL (8.5-10.1); CHLORIDE 106 MEQ/L (98-107); GLOMERULAR FILTRATION RATE 47 ML/MIN (>89); GLUCOSE,RANDOM 88 MG/DL (74-106); SODIUM (NA) 142 MEQ/L (136-145)
[2017-08-28 08:28] LABS: ALT (GPT) 17 U/L (10-53)
[2017-08-28 08:30] LABS: ALKALINE PHOSPHATASE 70 U/L (45-117); TOTAL PROTEIN 7.4 GM/DL (6.4-8.2)
[2017-08-28] MEDS: SODIUM CHLORIDE 0.9% FLUSH 10 ML FLUSH IV FLUSH SCH ×2 (09:00→21:30)
[2017-08-28] MEDS ORDERED: SODIUM CHLORIDE 0.65% NASAL SPRAY 45 ML BTL EACH NARE PRN (10:00)
[2017-08-28] MEDS ORDERED: guaiFENesin/DEXTROMETHORPHAN 200 MG/20 MG/10 ML CUP PO PRN (10:00)
--- NOTE | 2017-08-28 10:02 | HHI.PR ---
Subjective Remarks Follow up for CHF exacerbation. The patient is seen sitting upright in bed. She states she feels much better today. Shortness of breath improved but not quite back to baseline. She reports dry cough. She states she's had a recent "cold" with some nasal congestion. Denies any chest pain or palpitations. She states her legs are still more swollen than usual. O2 sat stable on room air. She has no other medical complaints at this time. Objective Vitals Vital Signs Date Time Temp Pulse Resp B/P (MAP) Pulse Ox O2 Delivery O2 Flow Rate FiO2 08/28/17 07:39 98.1 58 16 111/56 (74) 98 08/28/17 04:05 97.4 88 16 128/60 (82) 100 08/28/17 00:21 97.9 58 16 108/55 (72) 98 08/27/17 20:13 98.0 88 16 113/58 (76) 99 08/27/17 18:40 191/82 (118) 08/27/17 17:18 98.2 87 20 186/88 (120) 96 08/27/17 16:57 08/27/17 13:51 90 151/75 (100) 08/27/17 12:27 91 17 195/81 (119) 100 Room Air 08/27/17 11:17 72 228/88 (134) 08/27/17 09:57 82 22 223/91 (135) 99 Room Air I/O 08/27/17 08/27/17 08/27/17 08/28/17 08/28/17 08/28/17 07:00 15:00 23:00 07:00 15:00 23:00 Intake Total 240 ml Balance 240 ml Intake Oral 240 ml # Voids 1 1 Result Diagram: 08/28/17 0722 08/28/[address] Angiography 08/27/17 1113 Signed Impressions: Service Date/Time: Sunday, August 27, 2017 14:02 - CONCLUSION: 1. No pulmonary embolus identified. The exam is of moderate diagnostic quality. There is visualization out to the second order branches. 2. Advanced atherosclerotic plaquing of the coronary arteries. 3. Extensive calcification of the aortic annulus and valvular leaflets. Johny Franklin MD Chest X-Ray 08/27/17 1006 Signed Impressions: Service Date/Time: Sunday, August 27, 2017 10:06 - CONCLUSION: 1. Stable minimal left lower lung zone airspace disease, presumably atelectasis. 2. No acute abnormality or interval change. Tushar Vee MD Objective Remarks GENERAL: Well-nourished, well-developed pleasant elderly female patient in [facility]. SKIN: Warm and dry. No rash. HEENT: Normocephalic. Atraumatic. Pupils equal and round. Mucous membranes pink and moist. NECK: Supple. Trachea midline. CARDIOVASCULAR: Regular rate and rhythm. 1/6 systolic murmur noted, heard best at RUSB. RESPIRATORY: No accessory muscle use. Breath sounds diminished at bilateral bases, otherwise clear to auscultation. Breath sounds equal bilaterally. GASTROINTESTINAL: Abdomen soft, non-tender, nondistended. Normoactive bowel sounds x4. MUSCULOSKELETAL: No obvious deformities. Bilateral lower extremities with +1 nonpitting edema. NEUROLOGICAL: Awake and alert. No obvious cranial nerve deficits. Motor grossly within normal limits. Moving all extremities spontaneously. Normal speech. Medications and IVs Current Medications Medications (Trade) Dose Ordered Sig/Sara Route Start Time Stop Time Status Last Admin (NS Flush) 2 ml UNSCH PRN IV FLUSH 08/27/17 16:00 (NS Flush) 2 ml BID IV FLUSH 08/27/17 21:00 08/27/17 20:57 (Tylenol) 650 mg Q4H PRN PO 08/27/17 16:00 (Zofran Inj) 4 mg Q6H PRN IVP 08/27/17 16:00 (Tylenol) 650 mg Q6H PRN PO 08/27/17 16:00 08/27/17 20:57 (Narcan Inj) 0.4 mg UNSCH PRN IV PUSH 08/27/17 16:00 (Milk Of Magnesia Liq) 30 ml Q12H PRN PO 08/27/17 16:00 (Duoneb Neb) 1 ampule Q2HR NEB PRN NEB 08/27/17 16:00 (Norvasc) 10 mg DAILY PO 08/28/17 09:00 (Abilify) 10 mg DAILY PO 08/28/17 09:00 (Buspar) 15 mg TID PO 08/27/17 18:00 08/27/17 17:34 (Catapres) 0.1 mg BID PO 08/27/17 21:00 08/27/17 20:56 (Plavix) 75 mg DAILY PO 08/28/17 09:00 (Aricept) 5 mg HS PO 08/27/17 21:00 08/27/17 20:56 (Cozaar) 50 mg BID PO 08/27/17 21:00 08/27/17 20:56 (Desyrel) 50 mg HS PO 08/27/17 21:00 08/27/17 20:56 (Lasix Inj) 20 mg BID@18 IV PUSH 08/27/17 18:00 08/27/17 17:34 (Catapres) 0.2 mg Q6H PRN PO 08/27/17 16:45 08/27/17 17:34 A/P Problem List: (1) Acute on chronic diastolic CHF (congestive heart failure) ICD Code: I50.33 - Acute on chronic diastolic (congestive) heart failure (2) Hypertension, accelerated ICD Code: I10 - Essential (primary) hypertension (3) Elevated troponin ICD Code: R74.8 - Abnormal levels of other serum enzymes Status: Acute Assessment and Plan 87-year-old female with past medical history of diastolic CHF, hypertension, dementia was brought to the ED by family member for evaluation of worsening symptom of shortness of breath at rest associated with dry cough and chest pain , as well as generalized weakness. Acute on chronic diastolic CHF: BNP 145. CXR reviewed, shows stable minimal left lower lung zone airspace disease, likely atelectasis; otherwise no acute findings. -CT-PA reviewed, no PE; no acute pulmonary findings -Continue diuresis with Lasix IV 20 mg bid. She currently takes Lasix 40 mg daily at home -Last EF 55-60% on October 21, 2016, will repeat 2D echo -Troponins minimally elevated bu flat at 0.06 --> 0.08 --> 0.08, suspect secondary to CHF; possibly also due to demand ischemia from accelerated HTN; no complaints of chest pain -Monitor on telemetry -Continue patient's ARB Dyspnea: Multifactorial, likely secondary to CHF exacerbation, accelerated hypertension, and patient with recent viral URI -CTA noted the review without any PE -Chest x-ray noted and reviewed by me without any cardiopulmonary disease -Continue diuresis as above -Add ocean nasal spray for congestion -Robitussin prn cough Accelerated hypertension with hypertensive urgency: BP elevated to 228/99 upon arrival. S/p IV hydralazine 10mg x1 in the ED with some improvement. -Resume outpatient medications including losartan, amlodipine, clonidine -2D echo pending as above -Continue to monitor BP, adjust antihypertensives as needed. Elevated troponin I with hx of CAD -Likely secondary to demand ischemia from accelerated hypertension versus CHF exacerbations, unlikely ACS, no complaints of chest pain -Monitor on telemetry -Continue patient's plavix Dementia -Resume home medications. DVT prophylaxis: SCDs. Discharge Planning Awaiting echocardiogram and further clinical improvement. Likely discharge tomorrow if stable. PT eval pending. Batool Burt PA-C August 28, 2017 10:02 am
[2017-08-28] MEDS: FUROSEMIDE 20 MG/2 ML VIAL IV PUSH SCH ×2 (10:42→17:50)
[2017-08-28] MEDS: busPIRone HCL 5 MG TAB PO SCH ×3 (10:43→17:49)
[2017-08-28] MEDS: LOSARTAN 50 MG TAB PO SCH ×2 (10:43→21:31)
[2017-08-28] MEDS: ARIPiprazole 10 MG TAB PO SCH (10:44)
[2017-08-28] MEDS: CLOPIDOGREL 75 MG TAB PO SCH (10:44)
[2017-08-28] MEDS: cloNIDine HCL 0.1 MG TAB PO SCH ×2 (10:44→21:31)
[2017-08-28 10:55] VITALS: BP 147/66; PULSE 75; RESP 16; O2SAT 97
--- NOTE | 2017-08-28 14:13 | EKG ---
Date Performed: 08/27/2017 Time Performed: 18:12:40 PTAGE: 87 years EKG: Sinus rhythm WITH OCCASIONAL SUPRAVENTRICULAR PREMATURE COMPLEXES INCOMPLETE RIGHT BUNDLE BRANCH BLOCK LEFT ANTER IOR FASCICULAR BLOCK ST DEVIATION AND MODERATE T-WAVE ABNORMALITY, CONSIDER ANTERIOR ISCHEMIA When co mpared to previous tracing, the anterior T wave changes Are slightly more prominant. Consider ischemi a. ABNORMAL ECG PREVIOUS TRACING : 08/27/2017 10.23.57 DOCTOR: Oj Durán Interpretating Date/Time 08/28/2017 14:11:26
[2017-08-28 14:56] VITALS: BP 120/56; PULSE 63; RESP 16; TEMP 97.8; O2SAT 98
[2017-08-28 19:38] VITALS: BP 128/61; PULSE 73; RESP 18; TEMP 98.4; O2SAT 99
[2017-08-28] MEDS: DONEPEZIL HCL 5 MG TAB PO SCH (21:30)
[2017-08-28] MEDS: traZODone HCL 50 MG TAB PO SCH (21:30)
[2017-08-29 00:23] VITALS: BP 128/60; PULSE 72; RESP 18; TEMP 97.9; O2SAT 98
[2017-08-29 03:13] VITALS: BP 116/58; PULSE 68; RESP 18; TEMP 98; O2SAT 97
[2017-08-29 07:35] VITALS: BP 152/67; PULSE 56; RESP 18; TEMP 97.9; O2SAT 97
--- NOTE | 2017-08-29 07:51 | HHI.FF ---
Face to Face Verification Diagnosis: (1) Alzheimer disease (2) Acute on chronic diastolic CHF (congestive heart failure) (3) Coronary artery disease (4) Hypertension (5) Arthritis Physical Therapy Order: Evaluate and Treat, Improve ambulation, Strength and gait training Home Health Nursing Order: Medical education Signs/symptoms of disease process CHF education Nursing assessment with vital signs I have seen patient James Rodriguez on 08/29/17. My clinical findings support the need for the requested home health care services because: Ltd mobility - disease progression Patient has SOB Deconditioned w/ increased weakness Limited ability to care for self High risk of falls I certify that my clinical findings support that this patient is homebound because: Hx COPD- exertion dyspnea/weakness Unsteady gait/balance Unsafe to leave home unassisted Unable to use public transportation Batool Burt PA-C August 29, 2017 7:51 am
[2017-08-29 08:16] LABS: BICARBONATE 22.4 MEQ/L (21.0-32.0); CALCIUM 9.5 MG/DL (8.5-10.1); CREATININE 1.11 MG/DL (0.50-1.00)
--- NOTE | 2017-08-29 08:25 | HHI.PR ---
Subjective Remarks Follow up for CHF exacerbation. The patient reports feeling much better today. Denies any significant shortness of breath. Denies any cough or chest pain. She believes her leg swelling has improved. Denies any other medical complaints at this time. Objective Vitals Vital Signs Date Time Temp Pulse Resp B/P (MAP) Pulse Ox O2 Delivery O2 Flow Rate FiO2 08/29/17 07:35 97.9 56 18 152/67 (95) 97 08/29/17 03:13 98.0 68 18 116/58 (77) 97 08/29/17 00:23 97.9 72 18 128/60 (82) 98 08/28/17 19:38 98.4 73 18 128/61 (83) 99 08/28/17 14:56 97.8 63 16 120/56 (77) 98 08/28/17 10:55 75 16 147/66 (93) 97 I/O 08/28/17 08/28/17 08/28/17 08/29/17 08/29/17 08/29/17 07:00 15:00 23:00 07:00 15:00 23:00 Intake Total 240 ml 500 ml Output Total 0 ml Balance 240 ml 500 ml Intake Oral 240 ml 500 ml Output Stool Total 0 ml # Voids 3 Result Diagram: 08/28/17 0722 08/28/[address] Angiography 08/27/17 1113 Signed Impressions: Service Date/Time: Sunday, August 27, 2017 14:02 - CONCLUSION: 1. No pulmonary embolus identified. The exam is of moderate diagnostic quality. There is visualization out to the second order branches. 2. Advanced atherosclerotic plaquing of the coronary arteries. 3. Extensive calcification of the aortic annulus and valvular leaflets. Johny Franklin MD Chest X-Ray 08/27/17 1006 Signed Impressions: Service Date/Time: Sunday, August 27, 2017 10:06 - CONCLUSION: 1. Stable minimal left lower lung zone airspace disease, presumably atelectasis. 2. No acute abnormality or interval change. Tushar Vee MD Objective Remarks GENERAL: Well-nourished, well-developed pleasant elderly female patient in [facility]. SKIN: Warm and dry. No rash. HEENT: Normocephalic. Atraumatic. Pupils equal and round. Mucous membranes pink and moist. CARDIOVASCULAR: Regular rate and rhythm. 1/6 systolic murmur noted, heard best at RUSB. RESPIRATORY: No accessory muscle use. Breath sounds diminished at bilateral bases, otherwise clear to auscultation. Breath sounds equal bilaterally. GASTROINTESTINAL: Abdomen soft, non-tender, nondistended. Normoactive bowel sounds x4. MUSCULOSKELETAL: No obvious deformities. Bilateral lower extremities with trace nonpitting edema. NEUROLOGICAL: Awake and alert. No obvious cranial nerve deficits. Motor grossly within normal limits. Moving all extremities spontaneously. Normal speech. Medications and IVs Current Medications Medications (Trade) Dose Ordered Sig/Sara Route Start Time Stop Time Status Last Admin (NS Flush) 2 ml UNSCH PRN IV FLUSH 08/27/17 16:00 (NS Flush) 2 ml BID IV FLUSH 08/27/17 21:00 08/29/17 09:07 (Tylenol) 650 mg Q4H PRN PO 08/27/17 16:00 (Zofran Inj) 4 mg Q6H PRN IVP 08/27/17 16:00 (Tylenol) 650 mg Q6H PRN PO 08/27/17 16:00 08/27/17 20:57 (Narcan Inj) 0.4 mg UNSCH PRN IV PUSH 08/27/17 16:00 (Milk Of Magnesia Liq) 30 ml Q12H PRN PO 08/27/17 16:00 (Duoneb Neb) 1 ampule Q2HR NEB PRN NEB 08/27/17 16:00 (Norvasc) 10 mg DAILY PO 08/28/17 09:00 08/29/17 09:06 (Abilify) 10 mg DAILY PO 08/28/17 09:00 08/29/17 09:06 (Buspar) 15 mg TID PO 08/27/17 18:00 08/29/17 09:06 (Catapres) 0.1 mg BID PO 08/27/17 21:00 08/29/17 09:06 (Plavix) 75 mg DAILY PO 08/28/17 09:00 08/29/17 09:05 (Aricept) 5 mg HS PO 08/27/17 21:00 08/28/17 21:30 (Cozaar) 50 mg BID PO 08/27/17 21:00 08/29/17 09:06 (Desyrel) 50 mg HS PO 08/27/17 21:00 08/28/17 21:30 (Lasix Inj) 20 mg BID@ IV PUSH 08/27/17 18:00 08/29/17 09:08 (Catapres) 0.2 mg Q6H PRN PO 08/27/17 16:45 08/27/17 17:34 (Robitussin Dm 200-20 Mg/10 ml Liq) 10 ml Q6H PRN PO 08/28/17 10:00 (Boyle Regulo [place]) 2 spray BID PRN EACH NARE 08/28/17 10:00 A/P Problem List: (1) Acute on chronic diastolic CHF (congestive heart failure) ICD Code: I50.33 - Acute on chronic diastolic (congestive) heart failure (2) Hypertension, accelerated ICD Code: I10 - Essential (primary) hypertension (3) Elevated troponin ICD Code: R74.8 - Abnormal levels of other serum enzymes Status: Acute Assessment and Plan 87-year-old female with past medical history of diastolic CHF, hypertension, dementia was brought to the ED by family member for evaluation of worsening symptom of shortness of breath at rest associated with dry cough and chest pain , as well as generalized weakness. Acute on chronic diastolic CHF: BNP 145. CXR reviewed, shows stable minimal left lower lung zone airspace disease, likely atelectasis; otherwise no acute findings. -CT-PA reviewed, no PE; no acute pulmonary findings -Continue diuresis with Lasix IV 20 mg bid. She currently takes Lasix 40 mg daily at home -Last EF 55-60% on October 21, 2016, repeat echo pending -Troponins minimally elevated bu flat at 0.06 --> 0.08 --> 0.08, suspect secondary to CHF; possibly also due to demand ischemia from accelerated HTN; no complaints of chest pain -Monitor on telemetry -Continue patient's ARB Dyspnea: Multifactorial, likely secondary to CHF exacerbation, accelerated hypertension, and patient with recent viral URI -CTA noted the review without any PE -Chest x-ray noted and reviewed by me without any cardiopulmonary disease -Continue diuresis as above -Add ocean nasal spray for congestion -Robitussin prn cough -much improved Accelerated hypertension with hypertensive urgency: BP elevated to 228/99 upon arrival. S/p IV hydralazine 10mg x1 in the ED with some improvement. -Resume outpatient medications including losartan, amlodipine, clonidine -2D echo pending as above -Continue to monitor BP, adjust antihypertensives as needed. -BP much improved Elevated troponin I with hx of CAD -Likely secondary to demand ischemia from accelerated hypertension versus CHF exacerbations, unlikely ACS, no complaints of chest pain -Monitor on telemetry -Continue patient's plavix Dementia -Resume home medications. DVT prophylaxis: SCDs. Discharge Planning Discharge today after echocardiogram resulted. Discharge patient to home with [facility] Condition on discharge: Improved Heart Healthy Diet as tolerated Ad Maryuri activity Rx written: Follow-up with primary care physician and cardiology Batool Burt PA-C August 29, 2017 8:25 am
[2017-08-29] MEDS: CLOPIDOGREL 75 MG TAB PO SCH (09:05)
[2017-08-29] MEDS: busPIRone HCL 5 MG TAB PO SCH ×2 (09:06→13:27)
[2017-08-29] MEDS: ARIPiprazole 10 MG TAB PO SCH (09:06)
[2017-08-29] MEDS: LOSARTAN 50 MG TAB PO SCH (09:06)
[2017-08-29] MEDS: cloNIDine HCL 0.1 MG TAB PO SCH (09:06)
[2017-08-29] MEDS: SODIUM CHLORIDE 0.9% FLUSH 10 ML FLUSH IV FLUSH SCH (09:07)
[2017-08-29] MEDS: FUROSEMIDE 20 MG/2 ML VIAL IV PUSH SCH (09:08)
--- NOTE | 2017-08-29 09:55 | HHI.DCPOC ---
Discharge Care Plan Diagnosis: (1) Acute on chronic diastolic CHF (congestive heart failure) (2) Hypertension (3) Coronary artery disease Goals to Promote Your Health * To prevent worsening of your condition and complications * To maintain your health at the optimal level Directions to Meet Your Goals Take your medications as prescribed Follow your dietary instruction Follow activity as directed Keep your appointments as scheduled Take your immunizations and boosters as scheduled If your symptoms worsen call your PCP, if no PCP go to Urgent Care Center or Emergency Room Smoking is Dangerous to Your Health. Avoid second hand smoke Call the 24-hour hour crisis hotline for domestic abuse at [employer]ool Burt PA-C August 29, 2017 9:55 am
--- NOTE | 2017-08-29 10:07 | ECHRPT ---
Indication: CONCLUSIONS The left ventricular systolic function is mildly reduced with an estimated ejection fraction in the range of 45- 50%. Mild concentric left ventricular hypertrophy. Normal left ventricular size. The left atrial size is [id number] dilated. Calcification of both mitral valve leaflets. Mitral annular calcification is present. Moderate mitral valve regurgitation. Mild mitral valve stenosis. Diffuse calcification of the aortic valve. Moderate to severe aortic valve stenosis. Aortic valve area is 0.75 cm. Aortic valve mean gradient is 30 mmHg. There is moderate tricuspid regurgitation. The estimated pulmonary arterial pressure is 61.4 mmHg. Moderate pulmonary valve regurgitation. BP: / HR: 54 Rhythm: Sinus MEASUREMENTS (Male / Female) Normal Values Technical Quality:Fair 2D ECHO LV Diastolic Diameter PLAX 4.4 cm 4.2 - 5.9 / 3.9 - 5.3 cm LV Systolic Diameter PLAX 3.3 cm IVS Diastolic Thickness 1.3 cm 0.6 - 1.0 / 0.6 - 0.9 cm LVPW Diastolic Thickness 1.3 cm 0.6 - 1.0 / 0.6 - 0.9 cm LV Relative Wall Thickness 0.6 RV Internal Dim ED PLAX 3.7 cm LVOT Diameter 2.1 cm LA Systolic Diameter LX 4.2 cm 3.0 - 4.0 / 2.7 - 3.8 cm LA Volume Index 41.6 cm/m 16 - 28 cm/m M-MODE Aortic Root Diameter MM 2.5 cm LA Systolic Diameter MM 4.4 cm LA Ao Ratio MM 1.8 AV Cusp Separation MM 0.9 cm DOPPLER AV Peak Velocity 335.0 cm/s AV Peak Gradient 44.9 mmHg AV Mean Gradient 30.0 mmHg AV Velocity Time Integral 88.0 cm LVOT Peak Velocity 86.5 cm/s LVOT Peak Gradient 3.0 mmHg LVOT Velocity Time Integral 19.1 cm LVOT Cardiac Index 1568.2 cm/minm AV Area Cont Eq vti 0.8 cm AV Area Cont Eq pk 0.9 cm MV Peak Velocity 144.0 cm/s MV Peak Gradient 8.3 mmHg MV Mean Velocity 75.2 cm/s MV Mean Gradient 3.0 mmHg MV Area PHT 1.7 cm Mitral E Point Velocity 111.0 cm/s Mitral A Point Velocity 126.0 cm/s Mitral E to A Ratio 0.9 LV E' Lateral Velocity 3.3 cm/s Mitral E to LV E' Lateral Ratio 34.0 LV E' Septal Velocity 3.3 cm/s Mitral E to LV E' Septal Ratio 34.0 TR Peak Velocity 358.3 cm/s TR Peak Gradient 51.4 mmHg Right Atrial Pressure 10.0 mmHg Pulmonary Artery Systolic Pressu 61.4 mmHg Right Ventricular Systolic Press 61.4 mmHg FINDINGS LEFT VENTRICLE The left ventricular systolic function is mildly reduced with an estimated ejection fraction in the range of 45- 50%. Mild concentric left ventricular hypertrophy. Normal left ventricular size. RIGHT VENTRICLE Normal right ventricular size and systolic function. LEFT ATRIUM The left atrial size is [id number] dilated. RIGHT ATRIUM The right atrial size is normal. ATRIAL SEPTUM Normal atrial septal thickness without atrial level shunting by limited color doppler interrogation. AORTA The aortic root and proximal ascending aorta are normal in size on limited imaging. MITRAL VALVE Calcification of both mitral valve leaflets. Mitral annular calcification is present. Moderate mitral valve regurgitation. Mild mitral valve stenosis. AORTIC VALVE Trileaflet aortic valve. Diffuse calcification of the aortic valve. Moderate to severe aortic valve stenosis. Aortic valve area is 0.75 cm. Aortic valve mean gradient is 30 mmHg. Trace aortic valve regurgitation. TRICUSPID VALVE Structurally normal tricuspid valve. There is moderate tricuspid regurgitation. The estimated pulmonary arterial pressure is 61.4 mmHg. PULMONARY VALVE Moderate pulmonary valve regurgitation. VESSELS The inferior vena cava is normal in size. PERICARDIUM No pericardial effusion. Oj Durán MD (Electronically Signed) Final Date:29 Aug 2017 10:06
[2017-08-29 12:42] VITALS: BP 111/57; PULSE 52; RESP 16; TEMP 98.1; O2SAT 97
[2017-08-29 14:01] VITALS: O2SAT 98
== END 2017-08-29 16:49 | disposition home or self-care (01) ==
LOC: NEPE 09:24 → NEDA 15:41 → NEPGCP 17:32
PROVIDERS: ADMIT Hospitalist; ATTEND Hospitalist
DX: I50.33 Acute on chronic diastolic (congestive) heart failure (principal); I11.0 Hypertensive heart disease with heart failure; F03.90 Unspecified dementia, unspecified severity, without behavioral disturbance, psychotic disturbance, mood disturbance, and anxiety; Z79.02 Long term (current) use of antithrombotics/antiplatelets; I25.10 Atherosclerotic heart disease of native coronary artery without angina pectoris; R05 Cough; M19.90 Unspecified osteoarthritis, unspecified site; F41.9 Anxiety disorder, unspecified; F32.9 Major depressive disorder, single episode, unspecified; Z86.73 Personal history of transient ischemic attack (TIA), and cerebral infarction without residual deficits; I25.2 Old myocardial infarction; Z79.899 Other long term (current) drug therapy; M79.89 Other specified soft tissue disorders; R79.89 Other specified abnormal findings of blood chemistry; E11.8 Type 2 diabetes mellitus with unspecified complications; R94.31 Abnormal electrocardiogram [ECG] [EKG]; I45.2 Bifascicular block
CPT/HCPCS: 71045; 71275; 80048; 80053; 82550; 82552; 83880; 84484; 85025; 85610; 85730; 93005; 93306; 96374; 96375; 96376; 97162; 99285; G0378; G8987; G8988; J0360; J1940; Q9967